=== PATIENT | female | born 1985 | race African-American/Black ===

== ENCOUNTER 2019-01-03 10:48 | Inpatient (IN) | payer OTHER ==
[2019-01-03] MEDS ORDERED: Dextrose 50% Abboject 50 ML SYRINGE SLOW IVP PRN (14:24)
[2019-01-03] MEDS ORDERED: Ondansetron ODT 4 MG TAB PO PRN (14:24)
[2019-01-03] MEDS ORDERED: Acetaminophen 325 MG TAB PO PRN (14:24)
[2019-01-03] MEDS ORDERED: Dextrose 5% in Water 1,000 ML IV PRN (14:24)
[2019-01-03] MEDS ORDERED: HumaLOG 300 UNITS/3 ML VIAL SC PRN (14:24)
[2019-01-03] MEDS ORDERED: Ondansetron PF 4 MG/2 ML Vial IVP PRN (14:29)
[2019-01-03] MEDS ORDERED: Acetaminophen 500 MG TAB PO PRN (14:29)
--- NOTE | 2019-01-03 16:29 | PDOC.FPRHP ---
- History of Present Illness Chief Complaint: Pregestational diabetes History of Present Illness: 33F with past medical history of DM2 presents for insulin titration. She found out she was on 12/31/18 by home test, confirmed again today in clinic. Her LMP was 11/29/18. She is 4.6 week currently by LMP. She states she has not been taking any of her DM2 med since finding out she was . She states her BG is generally around 150, highest 250. She specifically denies headache, vision change, vomiting, stomach pain, mental status change, new edema or elevated BP. - Allergies/Adverse Reactions Allergies Allergy/AdvReac Type Severity Reaction Status Date / Time Sulfa (Sulfonamide Allergy Verified 05/31/13 15:14 Antibiotics) - Home Medications Medication Instructions Recorded Confirmed Type metFORMIN HCl [Riomet] 1,000 mg PO BID-WM 05/31/13 01/03/19 History Exenatide Microspheres [Bydureon 2 mg SC SEEPHYS 01/03/19 01/03/19 History Pen] Insulin Detemir [Levemir] 30 units SC BID 01/03/19 01/03/19 History Linagliptin [Tradjenta] 1 tab PO DAILY 01/03/19 01/03/19 History - History PMHx: PSHx: FHx: Social: - Review of Systems General: denies: fever/chills, weight/appetite/sleep changes, night sweats, fatigue Eyes: denies: vision changes ENT: denies: nasal congestion, rhinorrhea Respiratory: denies: cough, congestion, shortness of breath Cardiovascular: denies: chest pain, palpitation, edema, paroxysmal nocturnal dyspnea, orthopnea Gastrointestinal: reports: nausea. denies: vomiting, diarrhea, constipation, abdominal pain, GI bleeding Genitourinary: denies: incontinence Skin: denies: rashes, lesions, itching Musculoskeletal: denies: pain, tenderness, stiffness, arthritis/arthralgias Neurological: denies: numbness, syncope Psychological: denies: anxiety, depression - Vital signs BP: [] HR: [] RR: [] Tmax: [] Pox: []% on [] Wt: [] - Physical Exam Constitutional: NAD, awake, alert and oriented, well developed HEENT: normocephalic and atraumatic, no scleral icterus Neck: supple, trachea midline Heart: RRR, normal S1/S2, no murmurs/rubs/gallops Lungs: CTAB, no respiratory distress, good air movement, no rales/rhonchi, no wheezing Abdomen: soft, non-tender, bowel sounds present Neurological: no focal deficit, normal sensation Skin: no rash/lesions, capillary refill <2 seconds Heme/Lymphatic: no unusual bruising or bleeding Psychiatric: normal mood and affect, good judgment and insight, intact recent and remote memory FMR H&P: Results - Labs Result Diagrams: 01/03/19 17:26 01/04/19 10:25 FMR H&P: A/P - Problem List (1) First trimester Current Visit: Yes Status: Acute Code(s): Z34.91 - ENCNTR FOR SUPRVSN OF NORMAL PREG, UNSP, FIRST TRIMESTER Assessment and Plan: Likely first trimester Plan to confirm with dating US. (2) Pregestational diabetes mellitus, modified White class C Current Visit: Yes Status: Acute Code(s): O24.319 - UNSP PRE-EXISTING DIABETES IN , UNSP TRIMESTER Assessment and Plan: Patient indicate she was dx with diabetes in 2006. Plan to restart lantus 30 U BID. Will obtain 2 hour posprandial insulin. Start mild SSI with initiation at 150 glucose Labwork to include CMP, CBC, A1c, 24 hour protein, TSH, EKG Will defer retinal eye exam for outpatient. - Plan Obs, at least 2 days FMR H&P: Upper Level - Plan Date/Time: 01/03/19 1627 I, [], have evaluated this patient and agree with findings/plan as outlined by international flight attendant resident. Pertinent changes/additions are listed here. Addendum - Attending - Attending Attestation Date/Time: 01/03/19 0680 I personally evaluated the patient and discussed the management with Dr. Fiore I agree with the History, Examination, Assessment and Plan documented above with any addition or exceptions noted below. 33 yo female at 5.0 wks by LMP here for hyperglycemia with pregestational DM and CKD3 Patient reports she has stopped all DM medications due to risk for compromise. POC glucose 194 upon arrival. Home UPT 12/31/18. LMP 11/29/18. Medications include Levemir, Tradjenta, metformin, and Bydureon Denies HTN or HLD. Not on statin or ACEI/ARB. Denies VB or cramping. Reports some nausea. VS reviewed. NAD. MMM. RRR. No murmurs. CTAB. No wheezing, crackles, rhonchi NT/ND. BS+ No c/c/e 1. High risk : IOB labs done in clinic. Reviewed. WNL. A pos. Dating scan ordered. 2. pregestational DM: Unsure white classification at this time but likely Class CF. Dx in 2006. A1c, CBC, EKG, CMP, Uric acid, 24 hour protein collection, TSH pending. Start Levemir 30 BID with Lispro 15 TID WM. Add ISS for adjustments. Goal < 95/120. Will refer to [facility] will need 1T screening, level II anatomy, and ECHO. DM education and nutrition consulted. 3. 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 CT scans in hospital record reviewed. Left upper pole lobulation and scaring noted. Will add renal ultrasound for arterial dopplers and size. 24 hour protien pending. Uric acid added. Trend Cr. 4. BMI 37: Dietary consulted. Goal wt gain 15 lbs. Max 20 lbs. 30 mins daily walking. Nutrition consulted. 2000 kcal/day. Adjust based on weight changes. 5. DANUTA: Undiagnosed. Will refer for sleep study. 6. HTN?: 130 to 140 SBP in clinic. Patient states home readings or different. Will continue to monitor closely. Needs home monitoring. 7. hx of LTCS x2: Will need repeat likely at 36 to 37 wks. 8. hx of wound complication: Will need wound vac with section. 9. hx of IUFD at 35 wks (03/31/11): [facility] referral for 1T screening. testing needed. 10. SAB at 12 wks Dispo: Admit for glucose monitoring. Rule out DKA. Trend labs and vital. Imaging ordered. Christel
[2019-01-03 17:46] LABS: #Basophils 0.1 thou/uL (0.0-0.2); #Eosinphils 0.1 thou/uL (0.0-0.7); #Lymphocytes 2.3 thou/uL (1.20-3.40); #Monocytes 0.5 thou/uL (0.11-0.59); #Neutrophils 6.2 thou/uL (1.40-6.50); %Basophils 0.6 % (0.0-1.0); %Eosinophils 0.9 % (0.0-10.0); %Lymphocytes 25.5 % (21.0-51.0); %Monocytes 5.3 % (0.0-10.0); %Neutrophils 67.8 % (42.0-75.0); Hemoglobin 9.8 g/dL (12.0-16.0); Mean Corpuscular HGB CONC 31.6 g/dL (32.0-36.0); Mean Corpuscular Hemoglobin 26.4 pg (27.0-31.0); Mean Corpuscular Volume 83.7 fL (78.0-98.0); Mean Platelet Volume 7.6 fL (7.4-10.4); Platelet Count 284 thou/uL (130-400); RBC Distribution Width 13.4 % (11.5-14.5); Red Blood Cell (RBC) Count 3.71 mill/uL (4.20-5.40); White Blood Cell (WBC) Count 9.2 thou/uL (4.8-10.8)
[2019-01-03 17:53] VITALS: BMI 37.2
[2019-01-03] MEDS: HumaLOG 300 UNITS/3 ML VIAL SC PRN (18:19)
[2019-01-03 18:23] LABS: Hemoglobin A1c 7.3 % (4.0-6.0)
[2019-01-03 18:27] LABS: ALT (SGPT) 10 U/L (8-55); AST (SGOT) 11 U/L (5-34); Albumin 3.3 g/dL (3.5-5.0); Alkaline Phosphatase 60 U/L (40-150); Anion Gap 13 mmol/L (10-20); BUN (Urea Nitrogen) 15 mg/dL (7.0-18.7); Bilirubin, Total 0.2 mg/dL (0.2-1.2); Calc. Creatinine Clearance 114 mL/min (70-130); Calcium 9.5 mg/dL (7.8-10.44); Carbon Dioxide 22 mmol/L (22-29); Chloride 106 mmol/L (98-107); Estimated GFR-MDRD 55; Glucose 158 mg/dL (70-105); Protein, Total 7.3 g/dL (6.0-8.3); Sodium 137 mmol/L (136-145)
--- NOTE | 2019-01-03 21:38 | ULT ---
PELVIC ULTRASOUND WITH FARNSWORTH SCALE, COLOR FLOW AND SPECTRAL DOPPLER IMAGING 01/03/19 HISTORY: Dating ultrasound. FINDINGS: The uterus measures 13.4 x 5.2 x 7 cm. No focal mass or endometrial fluid. The endometrium measures 2 .2 cm in thickness. No intrauterine gestational sac is seen. The right ovary measures 4.6 x 3.4 x 3.6 cm and the left ovary measures 4.9 x 2 x 2.5 cm. Flow is dem onstrated to both ovaries. There is a 2.5 cm cyst in the right ovary. There is a small amount of free fluid in the pelvis. IMPRESSION: No evidence of intrauterine gestation. Recommend correlation with serial beta HCG levels and follow- up ultrasound. POS: [facility]
[2019-01-03] MEDS: Insulin Glargine 30 UNITS in Pre-Filled Syringe 1 EACH SC SCH (23:03)
[2019-01-04] MEDS: HumaLOG 300 UNITS/3 ML VIAL SC PRN ×2 (05:38→17:01)
--- NOTE | 2019-01-04 05:56 | PDOC.FM ---
- Subjective Subjective: Patient is eating and drinking well. Reports she has been voiding more than normal. Feeling well and hungry this AM, no complaints. - Objective MAR Reviewed: Yes Vital Signs & Weight: Vital Signs (12 hours) Temp Pulse Resp BP BP Pulse Ox 01/04/19 05:22 98.1 F 92 16 130/81 98 01/04/19 00:18 98.7 F 88 18 124/66 98 01/03/19 21:52 122/76 01/03/19 20:18 98.6 F 91 18 141/88 H 100 Weight Weight 121.109 kg I&O: 01/02/19 01/03/19 01/04/19 06:59 06:59 06:59 Intake Total 960 Balance 960 Result Diagrams: 01/03/19 17:26 01/04/19 10:25 Phys Exam - Physical Examination Constitutional: NAD Respiratory: no wheezing, clear to auscultation bilateral Cardiovascular: RRR, no significant murmur Gastrointestinal: soft, non-tender, no distention, positive bowel sounds Musculoskeletal: no edema, pulses present Neurological: non-focal, moves all 4 limbs Psychiatric: normal affect, A&O x 3 Skin: normal turgor, cap refill <2 seconds Dx/Plan (1) First trimester Code(s): Z34.91 - ENCNTR FOR SUPRVSN OF NORMAL PREG, UNSP, FIRST TRIMESTER Status: Acute (2) Pregestational diabetes mellitus, modified White class C Code(s): O24.319 - UNSP PRE-EXISTING DIABETES IN , UNSP TRIMESTER Status: Acute - Plan Plan: @ 5.1 wk by LMP sIUP, first trimester -needs follow up sono for 1T dating, unable to see anything on sono here -[facility] [place]LMP 11/29/18 T2DM, White Class C -Patient indicate yesterday that she was dx with diabetes in 2006, will reconfirm year of dx -Restarted lantus 30 U BID -Continue 2 hour posprandial insulin. Start 8 u humalog premeal. -A1C - 7.3 -24 hr protein pending -TSH - wnl -EKG - NSR -defer retinal eye exam for outpatient. Addendum - Attending - Attending Attestation Date/Time: 01/04/19 1026 I personally evaluated the patient and discussed the management with Dr. Brady I agree with the History, Examination, Assessment and Plan documented above with any addition or exceptions noted below. 33 yo female at 5.0 wks by LMP here for hyperglycemia with pregestational DM and CKD3 HIRO: 09/05/19 HD#1 Doing well. No episodes of hypoglycemia. Still not at goal. Will continue to adjust insulin. No VB or cramping. VS reviewed. NAD. MMM. RRR. No murmurs. CTAB. No wheezing, crackles, rhonchi NT/ND. BS+ No c/c/e cr = 1.38 GFR = 54 A1c = 7.3% AST = 11 PLT = 284 1. High risk : IOB labs done in clinic. Reviewed. WNL. A pos. Will need repeat sono in 4 wks. Trend beta hCG. 2. pregestational DM: Unsure white classification at this time but likely Class CF. Dx in 2006. 24 hour pending. Continue Levemir 30 BID with Lispro 15 TID WM ( did not start yet). Add ISS for adjustments. Goal < 95/120. Will refer to [facility] will need 1T screening, level II anatomy, and ECHO. s/p DM education and nutrition. 3. 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 CT scans in hospital record reviewed. Left upper pole lobulation and scaring noted. Will add renal ultrasound for arterial dopplers and size. 24 hour protien pending. Uric acid added. Trend Cr. 4. BMI 37: s/p Dietary. Goal wt gain 15 lbs. Max 20 lbs. 30 mins daily walking. Nutrition consulted. 2000 kcal/day. Adjust based on weight changes. 5. DANUTA: Undiagnosed. Will refer for sleep study. 6. HTN?: In hospital normotensive to mild range 130s. 130 to 140 SBP in clinic. Patient states home readings similar to hospital readings. Will continue to monitor closely. Needs home monitoring. 7. hx of LTCS x2: Will need repeat likely at 36 to 37 wks. 8. hx of wound complication: Will need wound vac with section. 9. hx of IUFD at 35 wks (03/31/11): [facility] referral for 1T screening. testing needed. 10. SAB at 12 wks 11. Iron def anemia: Start PO iron 12. N/V of : diclegis started. Dispo: Continue close monitoring and insulin adjustments. Renal ultrasound needed. Christel
[2019-01-04] MEDS ORDERED: HumaLOG 300 UNITS/3 ML VIAL SC SCH (08:00)
[2019-01-04] MEDS ORDERED: Insulin Glargine 30 UNITS in Pre-Filled Syringe 1 EACH SC SCH (09:00)
[2019-01-04 10:58] LABS: ALT (SGPT) Less than 7 U/L (8-55); AST (SGOT) 8 U/L (5-34); Albumin 3.3 g/dL (3.5-5.0); Alkaline Phosphatase 60 U/L (40-150); Anion Gap 9 mmol/L (10-20); BUN (Urea Nitrogen) 16 mg/dL (7.0-18.7); Bilirubin, Total 0.2 mg/dL (0.2-1.2); Calc. Creatinine Clearance 112 mL/min (70-130); Calcium 9.6 mg/dL (7.8-10.44); Carbon Dioxide 27 mmol/L (22-29); Chloride 105 mmol/L (98-107); Estimated GFR-MDRD 54; Glucose 141 mg/dL (70-105); Potassium 4.4 mmol/L (3.5-5.1); Protein, Total 7.3 g/dL (6.0-8.3); Sodium 137 mmol/L (136-145)
[2019-01-04] MEDS: HumaLOG 300 UNITS/3 ML VIAL SC SCH ×2 (14:33→19:39)
[2019-01-04 20:30] LABS: Urine Total Volume 2800 mL (600-1600)
[2019-01-04 20:54] LABS: Protein - 24 Hr 2968 mg/24 hr (Less than 300); Protein, Urine 106 mg/dL (1-14)
[2019-01-04] MEDS: Insulin Glargine 30 UNITS in Pre-Filled Syringe 1 EACH SC SCH (21:55)
[2019-01-04] MEDS: Doxylamine 25 MG TAB PO SCH (21:57)
[2019-01-04] MEDS: pyridOXINE 50 MG (B6) TAB PO SCH (21:58)
--- NOTE | 2019-01-05 07:00 | PDOC.FM ---
- Subjective Subjective: Patient feels well this AM. Reports 2 hours after having blood glucose of 85, she was feeling shaky so she ate hard candy. Reports they rechecked her blood glucose and it was 115. Otherwise, eating and drinking well. Reports she is eating less here than she does at home. - Objective Vital Signs & Weight: Vital Signs (12 hours) Temp Pulse Resp BP BP Pulse Ox 01/05/19 04:10 98.5 F 91 18 114/62 98 01/05/19 00:47 98.7 F 98 18 114/60 97 01/04/19 20:26 99.1 F 88 18 130/65 130/65 99 Weight Weight 121.109 kg I&O: 01/03/19 01/04/19 01/05/19 06:59 06:59 06:59 Intake Total 960 880 Balance 960 880 Result Diagrams: 01/03/19 17:26 01/04/19 10:25 Phys Exam - Physical Examination Constitutional: NAD Neck: no nodes, supple Respiratory: no wheezing, clear to auscultation bilateral Cardiovascular: RRR, no significant murmur Gastrointestinal: soft, non-tender, no distention, positive bowel sounds Musculoskeletal: no edema, pulses present Neurological: non-focal, moves all 4 limbs Psychiatric: normal affect Skin: normal turgor, cap refill <2 seconds Dx/Plan (1) First trimester Code(s): Z34.91 - ENCNTR FOR SUPRVSN OF NORMAL PREG, UNSP, FIRST TRIMESTER Status: Acute (2) Pregestational diabetes mellitus, modified White class C Code(s): O24.319 - UNSP PRE-EXISTING DIABETES IN , UNSP TRIMESTER Status: Acute - Plan Plan: 33 yo @ 5.2 wk by LMP sIUP, first trimester -LMP 11/29/18 -needs follow up sono for 1T dating, no fetus visualized on sono here -BHCG 232 T2DM, White Class C,F -Patient indicate yesterday that she was dx with diabetes in 2006 -Restarted lantus 30 U BID,increase today -Continue 2 hour postprandial glucose, SSI. -15 u humalog pre-meal. -Uric acid elevated 8.0 -A1C - 7.3 -24 hr protein pending -TSH - wnl -EKG - NSR, no LVH -defer retinal eye exam for outpatient. Hx Unilateral Renal Agenesis -Pt reported she has had only 1 kidney since Class 3 Chronic kidney disease -GFR in 50s -Cr baseline 1.3 PCP: Malinda Addendum - Attending - Attending Attestation Date/Time: 01/05/19 1033 I personally evaluated the patient and discussed the management with Dr. Brady I agree with the History, Examination, Assessment and Plan documented above with any addition or exceptions noted below. 33 yo female at 5.0 wks by LMP here for hyperglycemia with pregestational DM and CKD3 HIRO: 09/05/19 HD#2 Doing well. [place] shaky, dizzy, and nasuated after dinner. Ate sweet and felt better. Glucose improved to 115. VS reviewed. NAD. MMM. RRR. No murmurs. CTAB. No wheezing, crackles, rhonchi NT/ND. BS+ No c/c/e cr = 1.38 GFR = 54 A1c = 7.3% AST = 11 PLT = 284 24 hour protein = 2968 mg Uric acid = 8.0 1. High risk : IOB labs done in clinic. Reviewed. WNL. A pos. Will need repeat sono in 4 wks. Trend beta hCG. 2. pregestational DM: Unsure white classification at this time but likely Class CF. Dx in 2006. 24 hour pending. Continue Levemir 30 BID with Lispro 15 TID WM ( did not start yet). Add ISS for adjustments. Goal < 95/120. Will refer to [facility] will need 1T screening, level II anatomy, and ECHO. s/p DM education and nutrition. 3. 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 CT scans in hospital record reviewed. Left upper pole lobulation and scaring noted. Will add renal ultrasound for arterial dopplers and size. Will need to continue to trend labs throughout . Will need nephro referral. 4. BMI 37: s/p Dietary. Goal wt gain 15 lbs. Max 20 lbs. 30 mins daily walking. Nutrition consulted. 2000 kcal/day. Adjust based on weight changes. 5. DANUTA: Undiagnosed. Will refer for sleep study. 6. HTN?: In hospital normotensive to mild range 130s. 130 to 140 SBP in clinic. Patient states home readings similar to hospital readings. Will continue to monitor closely. Needs home monitoring. 7. hx of LTCS x2: Will need repeat likely at 36 to 37 wks. 8. hx of wound complication: Will need wound vac with section. 9. hx of IUFD at 35 wks (03/31/11): [facility] referral for 1T screening. testing needed. 10. SAB at 12 wks 11. Iron def anemia: Start PO iron 12. N/V of : diclegis started. Dispo: Continue close monitoring and insulin adjustments. Renal ultrasound needed. Needs MFM and Nephro referral outpatient. Christel
[2019-01-05] MEDS ORDERED: Insulin Glargine 35 UNITS in Pre-Filled Syringe 1 EACH SC SCH (07:13)
[2019-01-05] MEDS ORDERED: HumaLOG 300 UNITS/3 ML VIAL SC PRN (07:19)
[2019-01-05] MEDS: Ferrous Sulfate 325 MG TAB PO SCH (08:35)
[2019-01-05] MEDS: Insulin Glargine 35 UNITS in Pre-Filled Syringe 1 EACH SC SCH (08:36)
[2019-01-05] MEDS: Prenatal Vitamin 1 TAB PO SCH (08:40)
[2019-01-05] MEDS: Polyethylene Glycol 3350 17 GM Packet PO SCH (08:40)
[2019-01-05] MEDS ORDERED: Ondansetron ODT 4 MG TAB PO PRN (09:32)
[2019-01-05] MEDS: HumaLOG 300 UNITS/3 ML VIAL SC SCH ×2 (09:56→13:16)
[2019-01-05] MEDS ORDERED: HumaLOG 300 UNITS/3 ML VIAL SC SCH (17:00)
[2019-01-05] MEDS: Doxylamine 25 MG TAB PO SCH (21:22)
[2019-01-05] MEDS: pyridOXINE 50 MG (B6) TAB PO SCH (21:22)
--- NOTE | 2019-01-06 07:06 | PDOC.FM ---
- Subjective Subjective: Patient reports she has a headache this morning, and is thirsty. Discussed her new medication regimen for when she will go home. - Objective Vital Signs & Weight: Vital Signs (12 hours) Temp Pulse Resp BP Pulse Ox 01/06/19 05:46 98.6 F 90 16 127/78 98 01/05/19 23:45 98.2 F 93 16 134/68 98 01/05/19 19:50 98.0 F 89 20 131/81 100 Weight Weight 121.109 kg I&O: 01/05/19 01/06/19 01/07/19 06:59 06:59 06:59 Intake Total 880 960 Balance 880 960 Result Diagrams: 01/03/19 17:26 01/04/19 10:25 Phys Exam - Physical Examination Constitutional: NAD Respiratory: no wheezing, clear to auscultation bilateral Cardiovascular: RRR, no significant murmur Gastrointestinal: soft, non-tender, no distention Musculoskeletal: no edema, pulses present Neurological: non-focal, moves all 4 limbs Skin: normal turgor, cap refill <2 seconds Dx/Plan (1) First trimester Code(s): Z34.91 - ENCNTR FOR SUPRVSN OF NORMAL PREG, UNSP, FIRST TRIMESTER Status: Acute (2) Pregestational diabetes mellitus, modified White class C Code(s): O24.319 - UNSP PRE-EXISTING DIABETES IN , UNSP TRIMESTER Status: Acute - Plan Plan: 33 yo @ 5.3 wk by LMP sIUP, first trimester -LMP 11/29/18, HIRO 09/05/19 -needs follow up sono for 1T dating, no fetus visualized on sono here -BHCG 232 T2DM, White Class C,F -Patient indicate yesterday that she was dx with diabetes in 2006 -Lantus 35 U QAM and 37 U QPM -Continue 2 hour postprandial glucose, SSI. -15, 12, 12 u humalog pre-meal -Uric acid elevated 8.0 -A1C - 7.3 -24 hr protein elevated- almost 3 g protein/24hrs -TSH - wnl -EKG - NSR, no LVH -defer retinal eye exam for outpatient. Hx Unilateral Renal Agenesis -Pt reported she has had only 1 kidney since Class 3 Chronic kidney disease -GFR in 50s -Cr baseline 1.3 -24 hr protein elevated to 3 g -US Renal bilat pending Dispo: plan to dc today after imaging, pending any further clinical changes PCP: Malinda Addendum - Attending - Attending Attestation Date/Time: 01/06/19 1007 I personally evaluated the patient and discussed the management with Dr. Brady. I agree with the History, Examination, Assessment and Plan documented above with any addition or exceptions noted below.
[2019-01-06 08:05] VITALS: TEMP 98.1
[2019-01-06] MEDS: Ferrous Sulfate 325 MG TAB PO SCH (09:28)
[2019-01-06] MEDS: Insulin Glargine 35 UNITS in Pre-Filled Syringe 1 EACH SC SCH (09:29)
[2019-01-06] MEDS: Polyethylene Glycol 3350 17 GM Packet PO SCH (09:37)
[2019-01-06] MEDS: Prenatal Vitamin 1 TAB PO SCH (09:37)
[2019-01-06] MEDS: HumaLOG 300 UNITS/3 ML VIAL SC SCH ×2 (10:34→12:33)
[2019-01-06 11:35] VITALS: BP 124/66
--- NOTE | 2019-01-06 12:05 | ULT ---
RENAL ULTRASOUND: HISTORY: End-stage renal disease. TECHNIQUE: Multiple longitudinal and transverse images of the kidneys and bladder is obtained using a multi hert z curvilinear transducer. Real-time, color flow and spectral waveform Doppler analysis is used to evaluate kidneys and bladder. FINDINGS: The right kidney measures 10.5 cm and left kidney 10.0 cm from [id number]. No evidence of renal par enchymal masses or lesions seen. No evidence of hydronephrosis seen. The right and left ureteral jets are visualized. Resistive index in the right kidney measures 0.62 and in the left kidney 0.61. This is compatible wit h normal resistive indices. No definite evidence of renal artery stenosis suspected on sonography. IMPRESSION: Normal renal Doppler ultrasound evaluation and images. Transcribed Date/Time: 01/06/2019 1:07 PM
--- NOTE | 2019-01-07 09:23 | DIS ---
DATE OF ADMISSION: 01/03/2019 DATE OF DISCHARGE: 01/06/2019 RESIDENT: Joyce Brady MD ADMITTING ATTENDING: Carmela Doyle MD DISCHARGE ATTENDING: Omer Velarde MD CONSULTS: None. PROCEDURES PERFORMED: 1. Pelvic ultrasound 01/03/2019, findings, no evidence of intrauterine gestation. 2. Abdomen and pelvic ultrasound, renal ultrasound on 01/06/2019, preliminary report, normal renal Doppler ultrasound evaluation with images. Right kidney measures 10.5 and left kidney 10.0 cm. No evidence of renal parenchymal masses or lesions. No evidence of hydronephrosis. Right and left ureteral jets were visualized. Resistive index in the right kidney measures 0.62 and the left kidney 0.61, and this is compatible with normal resistive indices. No definite evidence of renal artery stenosis expected on sonography. PRIMARY DIAGNOSES: 1. Type 2 diabetes mellitus white class CF. 2. Single intrauterine , first trimester. SECONDARY DIAGNOSIS: Stage 3 chronic kidney disease. DISCHARGE MEDICATIONS: 1. Iron 225 mg oral every morning with breakfast. 2. Humalog 12 units subcutaneous with 15-30 minutes prior to breakfast, 12 units 15-30 minutes prior to lunch, and 12 units 15-30 minutes prior to supper. 3. Lantus 35 units subcutaneous q.a.m., 37 units subcutaneous q.p.m. 4. MiraLAX 17 g p.o. daily for constipation. 5. vitamin 1 tablet p.o. daily. DISCONTINUED MEDICATIONS: 1. Metformin 1000 mg p.o. b.i.d. with meals. 2. Levemir 30 units subcutaneous b.i.d. 3. Exenatide 2 mg subcutaneous 2 mg once weekly. 4. Tradjenta one tablet p.o. daily. HISTORY OF PRESENT ILLNESS/HOSPITAL COURSE: A 33-year-old with past medical history of type 2 diabetes mellitus, presents for insulin titration. On 2018 she had a + home test, which was confirmed today in clinic. Her LMP was 11/29/2018. By LMP, her HIRO is 09/05/2019. The patient states she has not been taking any of her diabetic medications since finding out that she is . She states her blood glucose is generally around 150-250. She denied headache, vision changes, vomiting, stomach pain, mental status change, no edema or elevated blood pressure. The patient had serial beta HCG done. Her initial beta HCG was 232. Less than 48 hours, her beta HCG had more than doubled to 530. The patient had a sonogram done, however, is too early to visualize the fetus. Recommend outpatient followup for repeat first trimester dating ultrasound. The patient is a white class CF diabetic. She reports she was diagnosed with diabetes in 2006. The patient was started on Lantus b.i.d., as well as Humalog with meals. The patient has a goal of 2-hour postprandial glucose less than 120 and fasting AM glucose to be less than 95. On discharge, the patient was taking 35 units Lantus in the a.m. and 37 units of Lantus in the p.m. Her premeal Humalog was 15 units at breakfast, 12 with lunch, and 12 with supper. The patient had elevated uric acid at 8.0. Her A1c was 7.3. 24-hour protein was elevated to almost 3 g. TSH is within normal limits. Her EKG showed normal sinus rhythm with no left ventricular hypertrophy. Recommend out patient retinal eye exam follow up. The patient has class 3 chronic kidney disease. Her GFR is in the 50s. Creatinine baseline is 1.3. Ultrasound of her kidneys was done. It showed no renal artery stenosis. It showed no hydronephrosis. Her kidneys were symmetric with cortical lengths of 10 cm and 10.5 cm. The patient reported that she only had one kidney, however, both kidneys were clearly visualized on ultrasound. DISPOSITION: Stable. DISCHARGE INSTRUCTIONS: 1. Location: Home. 2. Diet: Diabetic diet. 3. Activity: As tolerated. 4. Followup: Follow up with Dr. Vogt at 10:40 a.m. on Sunday at [facility] for diabetic titration management outpatient. Follow up with Dr. Tabatha Bernard on Sunday at January 13 at 10:40 a.m. for initial OB visit and further care. Job ID: [id number] [facility]
--- NOTE | 2019-01-07 16:10 | ULT ---
RENAL ULTRASOUND: HISTORY: End-stage renal disease. TECHNIQUE: Multiple longitudinal and transverse images of the kidneys and bladder is obtained using a multi hert z curvilinear transducer. Real-time, color flow and spectral waveform Doppler analysis is used to evaluate kidneys and bladder. FINDINGS: The right kidney measures 10.5 cm and left kidney 10.0 cm from [id number]. No evidence of renal par enchymal masses or lesions seen. No evidence of hydronephrosis seen. The right and left ureteral jets are visualized. Resistive index in the right kidney measures 0.62 and in the left kidney 0.61. This is compatible wit h normal resistive indices. No definite evidence of renal artery stenosis suspected on sonography. IMPRESSION: Normal renal Doppler ultrasound evaluation and images. Transcribed Date/Time: 01/07/2019 4:06 PM
== END 2019-01-06 13:50 | disposition home or self-care (01) | DRG 832 ==
LOC: INTOOBSV 13:47 → OBSVTOIN 13:47 → 3SE 13:47
PROVIDERS: ADMIT Student in an Organized Health Care Education/Training Program; ATTEND Student in an Organized Health Care Education/Training Program
DX: O24.311 Unspecified pre-existing diabetes mellitus in pregnancy, first trimester (principal); Q60.0 Renal agenesis, unilateral; O26.831 Pregnancy related renal disease, first trimester; Z3A.01 Less than 8 weeks gestation of pregnancy; O99.02 Anemia complicating childbirth; N18.3 Chronic kidney disease, stage 3 (moderate); E11.22 Type 2 diabetes mellitus with diabetic chronic kidney disease; O34.211 Maternal care for low transverse scar from previous cesarean delivery; D50.9 Iron deficiency anemia, unspecified; Z88.2 Allergy status to sulfonamides; Z79.4 Long term (current) use of insulin
CPT/HCPCS: 36415; 36416; 76700; 76770; 76856; 80053; 83036; 84156; 84443; 84550; 84702; 85025; 93005; 93010; J1825; Q0162

== ENCOUNTER 2019-07-26 20:00 | Inpatient (IN) | payer OTHER ==
[2019-07-26 20:53] VITALS: BMI 42.3
[2019-07-26] MEDS ORDERED: hydrALAZINE 20 MG/ML VIAL SLOW IVP PRN (21:45)
[2019-07-26 22:00] LABS: #Eosinphils 0.1 thou/uL (0.0-0.7); #Lymphocytes 1.7 thou/uL (1.20-3.40); #Monocytes 0.6 thou/uL (0.11-0.59); #Neutrophils 5.9 thou/uL (1.40-6.50); %Basophils 0.5 % (0.0-1.0); %Eosinophils 1.5 % (0.0-10.0); %Lymphocytes 20.5 % (21.0-51.0); %Monocytes 6.7 % (0.0-10.0); %Neutrophils 70.9 % (42.0-75.0); Hemoglobin 9.9 g/dL (12.0-16.0); Mean Corpuscular HGB CONC 34.1 g/dL (32.0-36.0); Mean Corpuscular Hemoglobin 30.7 pg (27.0-31.0); Mean Platelet Volume 7.2 fL (7.4-10.4); Platelet Count 198 thou/uL (130-400); RBC Distribution Width 11.7 % (11.5-14.5); Red Blood Cell (RBC) Count 3.22 mill/uL (4.20-5.40); White Blood Cell (WBC) Count 8.3 thou/uL (4.8-10.8)
[2019-07-26 22:21] LABS: ALT (SGPT) 9 U/L (8-55); AST (SGOT) 13 U/L (5-34); Albumin 2.9 g/dL (3.5-5.0); Alkaline Phosphatase 67 U/L (40-110); Anion Gap 12 mmol/L (10-20); BUN (Urea Nitrogen) 16 mg/dL (7.0-18.7); Bilirubin, Total 0.2 mg/dL (0.2-1.2); Calc. Creatinine Clearance 128 mL/min (70-130); Calcium 8.8 mg/dL (7.8-10.44); Carbon Dioxide 22 mmol/L (22-29); Chloride 107 mmol/L (98-107); Estimated GFR-MDRD 54; Globulin 3.5 g/dL (2.4-3.5); Glucose 93 mg/dL (70-105); Potassium 4.3 mmol/L (3.5-5.1); Protein, Total 6.4 g/dL (6.0-8.3); Sodium 137 mmol/L (136-145)
[2019-07-26] MEDS ORDERED: Acetaminophen 500 MG TAB PO SCH (22:30)
--- NOTE | 2019-07-26 23:07 | PDOC.FPRHP ---
- History of Present Illness Chief Complaint: Contractions, Headache History of Present Illness: Patient is a 33 yo female at 32.5 wks EGA by 7.1 wk U/S (HIRO 09/15/2019 ) who presents with complaint of headache that started yesterday and has been increasing in severity despite 2-3 rounds of Tylenol use. Additionally patient feels like started having contractions this morning, unable to provide timing between contractions, sometimes frequent sometimes feels like hours in between. Patient also says since she woke up this morning she noticed having new blurry vision. Her feet have also been having increased swelling the past 3 days. Per [facility] records patient follows with MFM, last note from 07/24/19 shows that patient was told to take HCTZ for edema but patient refused this med. Then started on Lasix 20 mg daily but patient still has not taken. Patient has longstanding hx of T2DM, dx in 2006, currently taking Lantus 44 in AM, 40 in PM & Humalog ssi. Patient states her morning fasting sugars have been in 70s and 80s, was 76 this morning. - Allergies/Adverse Reactions Allergies Allergy/AdvReac Type Severity Reaction Status Date / Time Sulfa (Sulfonamide Allergy Severe Hives Verified 07/26/19 20:39 Antibiotics) - Home Medications Medication Instructions Recorded Confirmed Type Ferrous Sulfate [Feosol] 325 mg PO QAM-WM #30 tab 01/06/19 07/26/19 Rx HumaLOG [HumaLOG Vial] 15 units SC QAM-WM #5 vial 01/06/19 07/26/19 Rx Vitamin 1 tab PO DAILY #30 tab 01/06/19 07/26/19 Rx Furosemide [Lasix] 1 tab PO BID 07/26/19 07/26/19 History HumaLOG [HumaLOG Vial] 15 units SC BID-WM 07/26/19 07/26/19 History Insulin Glargine [Lantus Vial] 44 units SC QAM 07/26/19 07/26/19 History Insulin Glargine [Lantus] 44 units SC HS 07/26/19 07/26/19 History - History PMHx: PSHx: FHx: Social: - Vital signs BP: [] HR: [] RR: [] Tmax: [] Pox: []% on [] Wt: [] FMR H&P: Results - Labs Result Diagrams: 07/26/19 21:53 07/26/19 21:53 Lab results: WBC 8.3 thou/uL (4.8-10.8) 07/26/19 21:53 Hgb 9.9 g/dL (12.0-16.0) L 07/26/19 21:53 Hct 28.9 % (36.0-47.0) L 07/26/19 21:53 MCV 90.0 fL (78.0-98.0) 07/26/19 21:53 Plt Count 198 thou/uL (130-400) 07/26/19 21:53 Neutrophils % 70.9 % (42.0-75.0) 07/26/19 21:53 Sodium 137 mmol/L (136-145) 07/26/19 21:53 Potassium 4.3 mmol/L (3.5-5.1) 07/26/19 21:53 Chloride 107 mmol/L (98-107) 07/26/19 21:53 Carbon Dioxide 22 mmol/L (22-29) 07/26/19 21:53 BUN 16 mg/dL (7.0-18.7) 07/26/19 21:53 Creatinine 1.37 mg/dL (0.6-1.1) H 07/26/19 21:53 Glucose 93 mg/dL (70-105) 07/26/19 21:53 Calcium 8.8 mg/dL (7.8-10.44) 07/26/19 21:53 Total Bilirubin 0.2 mg/dL (0.2-1.2) 07/26/19 21:53 AST 13 U/L (5-34) 07/26/19 21:53 ALT 9 U/L (8-55) 07/26/19 21:53 Alkaline Phosphatase 67 U/L (40-110) 07/26/19 21:53 Serum Total Protein 6.4 g/dL (6.0-8.3) 07/26/19 21:53 Albumin 2.9 g/dL (3.5-5.0) L 07/26/19 21:53 FMR H&P: Upper Level - Plan Date/Time: 07/26/194 I, [], have evaluated this patient and agree with findings/plan as outlined by consumer insights intern resident. Pertinent changes/additions are listed here.
[2019-07-26 23:17] LABS: Creatinine, Urine 27.03 mg/dL (47-110)
--- NOTE | 2019-07-26 23:40 | PDOC.FPROB ---
FMR OB H&P: HPI - History of Present Illness Chief Complaint: Contractions, Headache History of Present Illness: Patient is a 33 yo female at 32.5 wks EGA by 7.1 wk U/S (HIRO 09/15/2019 ) who presents with complaint of headache that started yesterday and has been increasing in severity despite 2-3 rounds of Tylenol use. Additionally patient feels like started having contractions this morning, unable to provide timing between contractions, sometimes frequent sometimes feels like hours in between. Patient also says since she woke up this morning she noticed having new blurry vision. Her feet have also been having increased swelling the past 3 days. Per [facility] records patient follows with [facility], last note from 07/24/19 shows that patient was told to take HCTZ for edema but patient refused this med. Then started on Lasix 20 mg daily but patient still has not taken. Patient has longstanding hx of T2DM, dx in 2006, currently taking Lantus 44 in AM, 40 in PM & Humalog ssi. Patient states her morning fasting sugars have been in 70s and 80s, was 76 this morning. Primary Care Physician: Koko FMR OB H&P: Current - Care : 4 Para: 1 Gestational age: 32.5 wks Due date: 09/15/2019 Dating Criteria: 7.1 wk U/S Course/Complications: T2DM, dx in 2006. CKD stage III Obesity - OB Labs Blood type: A RH: positive Antibody Screen: negative HIV: negative RPR: negative HepBsAg: negative Rubella: immune Gonorrhea: negative Chlamydia: negative A1c: 5.3% on 07/15/19 GBS: unknown H&H: 9.9/28.9 Platelets: 198 FMR OB H&P: History - Past Medical History PMH: T2DM, chronic HTN, CKD stage III, Obesity - OB History OB History: History of stillborn at 37 weeks EGA Hx of miscarriage in 1st trimester - Surgical History Sx History: 2 prior c/s - Social History Social History: Denies tobacco use. FMR OB H&P: Medications - Current Home Medications: Medication Instructions Recorded Confirmed Type Ferrous Sulfate [Feosol] 325 mg PO QAM-WM #30 tab 01/06/19 07/26/19 Rx HumaLOG [HumaLOG Vial] 15 units SC QAM-WM #5 vial 01/06/19 07/26/19 Rx Vitamin 1 tab PO DAILY #30 tab 01/06/19 07/26/19 Rx Furosemide [Lasix] 1 tab PO BID 07/26/19 07/26/19 History HumaLOG [HumaLOG Vial] 15 units SC BID-WM 07/26/19 07/26/19 History Insulin Glargine [Lantus Vial] 44 units SC QAM 07/26/19 07/26/19 History Insulin Glargine [Lantus] 44 units SC HS 07/26/19 07/26/19 History Allergies/Adverse Reactions: Allergies Allergy/AdvReac Type Severity Reaction Status Date / Time Sulfa (Sulfonamide Allergy Severe Hives Verified 07/26/19 20:39 Antibiotics) FMR OB H&P: ROS - Review of Systems General: reports: fatigue. denies: fever/chills, weight/appetite/sleep changes Eyes: reports: vision changes ENT: denies: nasal congestion, ear pain, ringing in ears Cardiovascular: reports: edema. denies: chest pain, palpitation, orthopnea Respiratory: denies: cough, congestion, shortness of breath Gastrointestinal: reports: cramping. denies: abdominal pain, nausea, vomiting, diarrhea, constipation Genitourinary (Female): reports: contractions. denies: dysuria, vaginal discharge, vaginal bleeding, vaginal pressure Musculoskeletal: denies: pain, tenderness, decrease range of motion Neurologic: reports: headache. denies: numbness, weakness Integumentary: denies: itching, rash Endocrine: denies: polyuria Psychological: denies: episodic change in person FMR OB H&P: Vital Signs - Maternal Vital signs: Vital Signs - First Documented Temp Pulse Resp BP 98.1 F 88 20 145/96 H 07/26/19 20:37 07/26/19 20:37 07/26/19 20:37 07/26/19 20:37 - Heart Tones Baseline: 140 Variability: minimal Acceleration: present Deceleration: absent Category: category 1 [place] contractions every: none FMR OB H&P: Physical Exam - Physical Exam General: NAD, awake, alert and oriented HEENT: normocephalic and atraumatic, EOMI, MMM, conjunctiva clear, no scleral icterus, grossly normal vision, grossly normal hearing Neck: supple, FROM, no JVD Chest: non-tender to palpation Heart: RRR, normal S1/S2, no murmurs/rubs/gallops, pulses present, other (1+ nonpitting edema in bilateral LE) General: CTAB, no respiratory distress, good air movement, no rales/rhonchi, no wheezing Abdomen: soft, gravid, fundus(cm) (above umbilicus), non-tender, bowel sound present Musculoskeletal: normal gait and station, pulses present, FROM in all four extremities Neurological: sensation to pain,touch and proprioception grossly normal, no focal deficit Skin: no rash, good tugor, no jaundice Lymphatic: no unusual bruising or bleeding Psychiatric: intact recent and remote memory, normal mood and affect FMR OB H&P: Results - Labs Lab results: Laboratory Results - last 24 hr 07/26/19 07/26/19 07/26/19 21:53 21:53 22:55 WBC 8.3 RBC 3.22 L Hgb 9.9 L Hct 28.9 L MCV 90.0 MCH 30.7 MCHC 34.1 RDW 11.7 Plt Count 198 MPV 7.2 L Neutrophils % 70.9 Lymphocytes % 20.5 L Monocytes % 6.7 Eosinophils % 1.5 Basophils % 0.5 Neutrophils # 5.9 Lymphocytes # 1.7 Monocytes # 0.6 H Eosinophils # 0.1 Basophils # 0.0 Sodium 137 Potassium 4.3 Chloride 107 Carbon Dioxide 22 Anion Gap 12 BUN 16 Creatinine 1.37 H Estimated GFR (MDRD) 54 Glucose 93 Calcium 8.8 Total Bilirubin 0.2 AST 13 ALT 9 Alkaline Phosphatase 67 Serum Total Protein 6.4 Albumin 2.9 L Globulin 3.5 Albumin/Globulin Ratio 0.8 L U Random Total Protein 99 H Urine Creatinine 27.03 L FMR OB H&P: A/P - Problem List (1) Headache Current Visit: Yes Status: Acute Code(s): R51 - HEADACHE Qualifiers: Headache type: new daily persistent Qualified Code(s): G44.52 - New daily persistent headache (NDPH) (2) Pregestational diabetes mellitus, modified White class C Current Visit: No Status: Acute Code(s): O24.319 - UNSP PRE-EXISTING DIABETES IN , UNSP TRIMESTER Disposition: 33 yo female at 32.5 wks by 7.1 wk U/S (HIRO 09/15/2019) who presents with headache: #Headache, Blurry Vision -will order Pre-E labs including CBC, CMP, Urine Protein, Urine Creatinine -will review [facility] records for baseline lab values #Hx of CKD III -2/2 longstanding uncontrolled T2DM -currently sees MFM weekly, last appt on 07/24/19 patient was supposed to start on HCTZ for peripheral edema but patient refused, then started on Furosemide 20 mg although patient not taken yet #Pregestational T2DM -currently taking Lantus 44 units in AM, 40 units in PM -has Humalog ssi for meals -FBG this AM was 76 per patient, AM sugars have been running in 70s and 80s -last A1C was 5.3% on 07/15/19 Dispo: Will place on monitor. Order Pre-E workup. Will review [facility] records to see baseline labs. Hospital Course: Patient offered Tylenol for ARSHAD and refused. Then given Reglan and Benadryl. Patient's labs returned near baseline when compared to [facility] records. Headache improved. Discharge Instructions: Keep appointment with MFM next week. Encouraged to take Furosemide for LE edema. Given ER return precautions. Discharged to home @0030 on 07/27. Discussion: Date/Time: 07/26/192338 This H&P was discussed with Dr. Serna and Dr. Fry who agree with the above documentation and plan. Addendum - Attending - Attending Attestation Date/Time: 07/27/19 0035 I personally evaluated the patient and discussed the management with Dr. Jacome I agree with the History, Examination, Assessment and Plan documented above with any addition or exceptions noted below - 33 yo @32.1 weeks with pregestational DM complicated by nephropathy and h/o stillbirth at 37 weeks presented c/o ARSHAD since yesterday increasing in intensity. Also c/o intermittent ctx unable to quantify frequency. Denies any LOF, VB. (+)FM Serial BP initially 140/90s now 130/60s. Exam repeated by me and agree with resident's findings. Labs: Kas=510, H/H=9.9/28.9, Cr=1.37, U Pr/Cr=3.66. A/P: 1) IUP @ 32.1 weeks with pregestational DM complicated by nephropathy now with ARSHAD- labs at baseline ; last 24 hour urine protein = 3.887g (07/17/2019). Trial of reglan and benadryl for ARSHAD. Will re-evaluate in 1 hour from meds.
[2019-07-26] MEDS ORDERED: diphenhydrAMINE 50 MG/ML VIAL IM SCH (23:45)
[2019-07-26] MEDS ORDERED: Insulin Glargine 44 UNITS in Pre-Filled Syringe 1 EACH SC SCH (23:45)
[2019-07-26] MEDS ORDERED: Metoclopramide HCl 10 MG TAB PO SCH (23:45)
--- NOTE | 2019-07-27 01:00 | PDOC.EVN ---
Event Note - Event Note Event Note: Follow-up with patient- still complaining of ARSHAD but asleep on entering room. BP 120/65. Will place in obs and re-evaluate in AM. Intermittent monitoring, q1 BP , repeat labs in AM and will start a new 24 hour protein.
--- NOTE | 2019-07-27 01:03 | PDOC.OBTPN ---
FMR OB Triage PN:Sub - Interval History Chief Complaint: Headache FMR OB Triage PN:Obj - Maternal Vital signs: BP: 120s-130s systolic FMR OB Triage PN:Data - Labs Lab results: Laboratory Results - last 24 hr 07/26/19 07/26/19 07/26/19 21:53 21:53 21:53 WBC 8.3 RBC 3.22 L Hgb 9.9 L Hct 28.9 L MCV 90.0 MCH 30.7 MCHC 34.1 RDW 11.7 Plt Count 198 MPV 7.2 L Neutrophils % 70.9 Lymphocytes % 20.5 L Monocytes % 6.7 Eosinophils % 1.5 Basophils % 0.5 Neutrophils # 5.9 Lymphocytes # 1.7 Monocytes # 0.6 H Eosinophils # 0.1 Basophils # 0.0 Sodium 137 Potassium 4.3 Chloride 107 Carbon Dioxide 22 Anion Gap 12 BUN 16 Creatinine 1.37 H Estimated GFR (MDRD) 54 Glucose 93 Calcium 8.8 Total Bilirubin 0.2 AST 13 ALT 9 Alkaline Phosphatase 67 B-Natriuretic Peptide 31.5 Serum Total Protein 6.4 Albumin 2.9 L Globulin 3.5 Albumin/Globulin Ratio 0.8 L U Random Total Protein Urine Creatinine 07/26/19 22:55 WBC RBC Hgb Hct MCV MCH MCHC RDW Plt Count MPV Neutrophils % Lymphocytes % Monocytes % Eosinophils % Basophils % Neutrophils # Lymphocytes # Monocytes # Eosinophils # Basophils # Sodium Potassium Chloride Carbon Dioxide Anion Gap BUN Creatinine Estimated GFR (MDRD) Glucose Calcium Total Bilirubin AST ALT Alkaline Phosphatase B-Natriuretic Peptide Serum Total Protein Albumin Globulin Albumin/Globulin Ratio U Random Total Protein 99 H Urine Creatinine 27.03 L R OB Triage PN:A/P - Problem List (1) Headache Current Visit: Yes Status: Acute Code(s): R51 - HEADACHE Qualifiers: Headache type: new daily persistent Qualified Code(s): G44.52 - New daily persistent headache (NDPH) (2) Pregestational diabetes mellitus, modified White class C Current Visit: No Status: Acute Code(s): O24.319 - UNSP PRE-EXISTING DIABETES IN , UNSP TRIMESTER Disposition: Patient headache was not improving after Benadryl and Reglan. However BP continued to look better with 120s-130s systolic, 80s diastolic. Given high risk patient, will admit patient to observation. Will continue to monitor BP q 1hr. Plan to repeat CBC, CMP in the AM. Will also obtain 24 hr urine protein. Will order Accuchecks fasting and postprandial. Dispo: Stable, admitted to observation on L&D. Anticipate d/c after 24 hr urine protein collected. Discussion: Date/Time: 07/27/19 0100 This H&P was discussed with Dr. Serna and Dr. Fry who agree with the above documentation and plan.
[2019-07-27] MEDS ORDERED: Dextrose 5% in Water 1,000 ML IV PRN (02:35)
[2019-07-27] MEDS ORDERED: Dextrose 50% Abboject 50 ML SYRINGE SLOW IVP PRN (02:35)
[2019-07-27] MEDS ORDERED: Insulin Regular 300 UNITS/3 ML VIAL SC PRN (02:35)
[2019-07-27 04:53] LABS: #Eosinphils 0.1 thou/uL (0.0-0.7); #Lymphocytes 1.6 thou/uL (1.20-3.40); #Monocytes 0.7 thou/uL (0.11-0.59); #Neutrophils 5.7 thou/uL (1.40-6.50); %Basophils 0.6 % (0.0-1.0); %Eosinophils 1.3 % (0.0-10.0); %Lymphocytes 20.1 % (21.0-51.0); Mean Corpuscular HGB CONC 34.2 g/dL (32.0-36.0); Mean Corpuscular Hemoglobin 30.4 pg (27.0-31.0); Mean Corpuscular Volume 88.8 fL (78.0-98.0); Mean Platelet Volume 7.2 fL (7.4-10.4); Platelet Count 179 thou/uL (130-400); RBC Distribution Width 11.6 % (11.5-14.5); Red Blood Cell (RBC) Count 2.97 mill/uL (4.20-5.40); White Blood Cell (WBC) Count 8.1 thou/uL (4.8-10.8)
--- NOTE | 2019-07-27 04:59 | PDOC.LDPN ---
Labor & Delivery Progress Note - Subjective Subjective: other (Headache currently an 8/10 L frontal throbbing/stabbing pain) - Objective Vital signs reviewed and normal: yes General: NAD, breathing through contractions Uterine fundus: non tender - Assessment (1) Headache Code(s): R51 - HEADACHE Current Visit: Yes Status: Acute Qualifiers: Headache type: new daily persistent Qualified Code(s): G44.52 - New daily persistent headache (NDPH) (2) Pregestational diabetes mellitus, modified White class C Code(s): O24.319 - UNSP PRE-EXISTING DIABETES IN , UNSP TRIMESTER Current Visit: No Status: Acute (3) Anemia Code(s): D64.9 - ANEMIA, UNSPECIFIED Current Visit: Yes Status: Chronic Plan: continue plan of care -: 33 yo female at 32.5 wks by 7.1 wk U/S (HIRO 09/15/2019) who presents with headache: 1. Headache, Blurry Vision * Ordered Pre-E labs including CBC, CMP, Urine Protein, Urine Creatinine: wnl * Reviewed [facility] records for baseline lab values * Continue to monitor BP q 1hr. * CMP: wnl * 24 hr urine protein:pending * Reglan & Benadryl unsuccessful 2. Hx of CKD III 2/2 longstanding uncontrolled T2DM * Currently sees MFM weekly, last appt on 07/24/19 patient * Supposed to start on HCTZ for peripheral edema but patient refused, then started on Furosemide 20 mg although patient not taken yet 3. Pregestational T2DM, White's Class C Home Regimen: Lantus 44 units in AM, 40 units in PM * Humalog SSI for meals * FBG 07/26 AM was 76 per patient, AM sugars have been running in 70s and 80s * last A1C was 5.3% on 07/15/19 * Order Accuchecks fasting and postprandial. 4. Anemia Hgb: 9.9 >9.0 * Reviewed clinic labs and around her normal range * Currently on Iron & PNV with Iron Activity: As tolerated Code Status: Full Dispo: Will place on monitor. 24H protein pending. Obs LOS <48H Addendum - Attending - Attending Attestation Date/Time: 07/27/19 3357 I personally evaluated the patient and discussed the management with Dr. Marcel Terrell I agree with the History, Examination, Assessment and Plan documented above with any addition or exceptions noted below - Patient reports continued ARSHAD. Afebrile VSS. A/P: 1) IUP @ 32.6 weeks with Class F DM and CKD - BP at baseline ; repeat labs at baseline. 24 hour urine in progress. Case d/w OB hospitalist and will see patient for additional recommendations. Does not appear to be developing superimposed pre-eclampsia at this time.
[2019-07-27 05:17] LABS: ALT (SGPT) 8 U/L (8-55); AST (SGOT) 12 U/L (5-34); Albumin 2.6 g/dL (3.5-5.0); Alkaline Phosphatase 61 U/L (40-110); Anion Gap 11 mmol/L (10-20); BUN (Urea Nitrogen) 16 mg/dL (7.0-18.7); Bilirubin, Total Less than 0.2 mg/dL (0.2-1.2); Calc. Creatinine Clearance 131 mL/min (70-130); Calcium 8.7 mg/dL (7.8-10.44); Carbon Dioxide 23 mmol/L (22-29); Chloride 109 mmol/L (98-107); Estimated GFR-MDRD 55; Globulin 3.4 g/dL (2.4-3.5); Glucose 145 mg/dL (70-105); Potassium 4.3 mmol/L (3.5-5.1); Sodium 139 mmol/L (136-145)
[2019-07-27] MEDS ORDERED: HumaLOG 300 UNITS/3 ML VIAL SC SCH ×2 (08:00)
[2019-07-27] MEDS: Ferrous Sulfate 325 MG TAB PO SCH (08:58)
[2019-07-27] MEDS: Furosemide 20 MG TAB PO SCH ×2 (08:58→21:29)
[2019-07-27] MEDS: Prenatal Vitamin 1 TAB PO SCH (08:59)
[2019-07-27] MEDS: HumaLOG 300 UNITS/3 ML VIAL SC SCH ×3 (09:18→19:13)
--- NOTE | 2019-07-27 09:35 | PDOC.LDHP ---
Labor and Delivery H&P Chief complaint: other (Consult) HPI: 33yo female at 32.6wks by 7.1wk US (HIRO 09/15/2019) who initially presented due to headache. She has tried Tylenol, Reglan and Benadryl with little relief. L&D hospitalist was consulted to eval pt for need for steroids for lung maturity. Pt is a long standing DMII, dx in 2006, White Class F. Currently taking Lantus 44U AM, 40U PM & Humalog SSI. Blood glucose has been well controlled. A1c 5.3 on 07/15/19. She follows with MFM. Had an US a couple days ago which was reportedly normal. She has hx of delivery with her son and hx of demise that was delivered via C/S at 37wks. Urine protein/Cr : 3.7 which is near pts baseline. Dating criteria: first trimester ultrasound (7.4wk) Grav: 4 Para: 1 (0211) Current complications: pregestational diabetes, other (CKD stage 3 Obesity) Abnormal US findings: No Past Medical History: T2DM, chronic HTN, CKD stage III, Obesity Current medications: pre-zohreh vitamins, iron, other (Lantus and Humalog Lasix- not taking) Previous surgical history: low tranverse CS Allergies/Adverse Reactions: Allergies Allergy/AdvReac Type Severity Reaction Status Date / Time Sulfa (Sulfonamide Allergy Severe Hives Verified 07/26/19 20:39 Antibiotics) Social history: none - Physical Exam Vital signs reviewed and normal: yes (one severe range pressure SBP 180) General: NAD, resting Abdomen: other (mildly tender to palpation, no rebound or rigidity) Extremeties: pitting edema (1+) FHT: category 1 - OB Labs Blood type: A RH: positive Antibody Screen: negative HIV: negative RPR: negative HEPSAg: negative GBS: unknown Rubella: immune - Plan -: 33yo female at 32.6wks by 7.1wk US (HIRO 09/15/2019) Hx of delivery x2 with one demise at 37wks - With hx of delivery, HTN, and DM she is at an increased risk of delivery with this . Would recommend giving Betamethasone x2 doses for lung maturity. Headache - Pre-E labs at baseline from prior lab values in clinic - Continue to monitor BP - 24hr urine protein being collected - Has tried Tylenol, Benadryl and Reglan with no relief. Will give Fiorcet, could also see some benefit with steroids. Hx of CKD III - Follows with MFM weekly - Reportedly prescribed HCTZ for peripheral edema but patient refused, recently started on Furosemide 20mg White's Class F DM - On Lantus 44U in AM, 40U HS and Humalog SSI WM - A1C 5.3% on 07/15/19 - Continue to monitor BG, expect rise in BG with steroids. May need to adjust insulin in anticipation of this. Anemia - On iron Pretty Arroyo MD PGY-2 Pt seen and evaluated by Dr Shivam Castellanos - Attending - Attending Attestation Date/Time: 07/27/19 3178 I personally evaluated the patient and discussed the management with Dr. Arroyo. I agree with the History, Examination, Assessment and Plan documented above with any addition or exceptions noted below. Given patient's history of stillbirth and multiple medical problems, I feel the chances of her delivery prematurely and in an expedited fashion are high. I recommend administering Betamethasone for lung maturity now, with close monitoring of patient's blood sugars. Continue 24 hour urine to assess for worsening proteinuria as well as serial BPs. Recommend Fioricet as an alternate treatment of her headache. Please let us know if we can be of further assistance.
[2019-07-27] MEDS ORDERED: HumaLOG 300 UNITS/3 ML VIAL SC PRN (10:10)
[2019-07-27] MEDS: Insulin Glargine 44 UNITS in Pre-Filled Syringe 1 EACH SC SCH (10:22)
[2019-07-27] MEDS: Fioricet 325/50/40 mg Tablet PO SCH ×3 (10:42→17:33)
[2019-07-27] MEDS: Betamet Acet/Betamet Na Ph 30 MG/5 ML VIAL IM SCH (10:42)
[2019-07-27] MEDS ORDERED: Insulin Glargine 40 UNITS in Pre-Filled Syringe 1 EACH SC SCH (21:00)
[2019-07-28] MEDS: Fioricet 325/50/40 mg Tablet PO SCH ×3 (00:03→16:47)
[2019-07-28 01:26] LABS: Urine Total Volume 3650 mL (600-1600)
[2019-07-28 02:14] LABS: Protein - 24 Hr 14053 mg/24 hr (Less than 300); Protein, Urine 385 mg/dL (1-14)
--- NOTE | 2019-07-28 05:52 | PDOC.LDPN ---
Labor & Delivery Progress Note - Assessment (1) 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 Code(s): O24.319 - UNSP PRE-EXISTING DIABETES IN , UNSP TRIMESTER; E11.21 - TYPE 2 DIABETES MELLITUS WITH DIABETIC NEPHROPATHY Current Visit: Yes Status: Acute (2) CKD (chronic kidney disease), stage III Code(s): N18.3 - CHRONIC KIDNEY DISEASE, STAGE 3 (MODERATE) Current Visit: Yes Status: Acute (3) Proteinuria affecting in third trimester Code(s): O12.13 - GESTATIONAL PROTEINURIA, THIRD TRIMESTER Current Visit: Yes Status: Acute (4) Headache Code(s): R51 - HEADACHE Current Visit: Yes Status: Acute Qualifiers: Headache type: new daily persistent Qualified Code(s): G44.52 - New daily persistent headache (NDPH) (5) Anemia Code(s): D64.9 - ANEMIA, UNSPECIFIED Current Visit: Yes Status: Chronic
--- NOTE | 2019-07-28 07:16 | PDOC.LDPN ---
Labor & Delivery Progress Note - Subjective Subjective: other (continued ARSHAD with no change in character. No new complaints.) - Objective Vital signs reviewed and normal: yes General: NAD, resting -: 33yo female at 33wks by 7.1wk US (HIRO 09/15/2019) Hx of delivery x2 with one demise at 37wks A- With hx of delivery, HTN, and DM she is at an increased risk of delivery with this . OB has been consulted and gave 1/2 doses of betamethasone yesterday. Recommendations much appreciated P- second dose betamethasone to be given today Pre-eclampsia A- 24hr urine elevated at 14g, otherwise lkabwork is relatively unremarkable. SBPs generally 130s with some in 150s. No severe features. P- steroids per plan above -monitor BPs -will discuss inpt vs. outpt mgmt during rounds Headache A- has been refractory to treatments (Tylenol, Benadryl and Reglan, Fioricet) thus far. P- Continue to monitor BP -steroid dose per plan above White's Class F DM A- sugar control challenged by steroid dose. A1C 5.3% on 07/15/19. P- Lantus 44U in AM, 44U HS (increase from 40u) and Humalog WM (15u, 15u, 20u) and as agressive SSI, will adjust dosing as needed to compensate for steroid effect. Hx of CKD III -Follows with MFM weekly, recently started on furosemide 20mg Anemia -At baseline, continue iron
[2019-07-28] MEDS ORDERED: Insulin Regular 300 UNITS/3 ML VIAL SC PRN (08:01)
[2019-07-28] MEDS: Insulin Glargine 44 UNITS in Pre-Filled Syringe 1 EACH SC SCH (08:39)
[2019-07-28] MEDS: Ferrous Sulfate 325 MG TAB PO SCH (08:40)
[2019-07-28] MEDS: Prenatal Vitamin 1 TAB PO SCH (08:40)
[2019-07-28] MEDS: Furosemide 20 MG TAB PO SCH (08:40)
[2019-07-28] MEDS ORDERED: Aspirin 81 mg Enteric Coated Tablet PO SCH (09:00)
[2019-07-28] MEDS: HumaLOG 300 UNITS/3 ML VIAL SC SCH ×2 (10:06→16:47)
[2019-07-28] MEDS: Betamet Acet/Betamet Na Ph 30 MG/5 ML VIAL IM SCH (11:37)
--- NOTE | 2019-07-28 11:44 | ULT ---
ULTRASOUND BIOPHYSICAL PROFILE: DATE: 07/28/2019 HISTORY: 33-year-old female with preeclampsia. FINDINGS: breathin tone: 2 movement: 2 Amniotic fluid volume: 2 lie: Cephalic. Placenta: To maternal right. Maternal cervix: Obscured Amniotic fluid volume: RUBIA 18 cm. heart rate: 147 bpm. IMPRESSION: Normal biophysical profile score of 8 out of 8, excluding the nonstress test.
[2019-07-28 13:35] LABS: Anion Gap 11 mmol/L (10-20); BUN (Urea Nitrogen) 17 mg/dL (7.0-18.7); Calc. Creatinine Clearance 126 mL/min (70-130); Calcium 8.9 mg/dL (7.8-10.44); Carbon Dioxide 26 mmol/L (22-29); Chloride 106 mmol/L (98-107); Estimated GFR-MDRD 53; Glucose 98 mg/dL (70-105); Potassium 4.7 mmol/L (3.5-5.1); Sodium 138 mmol/L (136-145)
[2019-07-28] MEDS ORDERED: Bicitra 30 ML UDCUP PO SCH (14:45)
[2019-07-28] MEDS ORDERED: CEFAZOLIN 2 GM in Premix Bag 1 BAG IVPB SCH (14:45)
--- NOTE | 2019-07-28 15:40 | PDOC.APC ---
Antepartum Consult ANGÉLICA PLASENCIA is a 33 year old female at [33 0/7] gestational weeks. I was asked by Dr Fry to speak with the patient regarding anticipated course for a baby born at weeks. I spoke with the patient and father of the baby. I outlined that the timing and mode of delivery is a decision that will be made by the OB service. Once the patient is taken for delivery, the resuscitation team will be present. The initial focus will be on respiratory stabilization and may include minimal assistance, CPAP or intubation with surfactant administration. I discussed that the patient will need to be admitted to the NICU in an isolette due to temperature instability associated with prematurity. We will then obtain IV access (peripheral will be first line, umbilical if unable to obtain peripheral) as babies are at risk for hypoglycemia. We discussed that babies born are at higher risk for feeding intolerance, infection and jaundice. I discussed that breastmilk is the best nutrition for babies and she is strongly encouraged to pump after delivery. Mother does plan to breastfeed. I explained that the duration of hospital stay will be determined on the clinical course of the baby. I outlined the milestones that needed to be achieved to ensure safe discharge home. They had the opportunity to ask questions. I encouraged them to contact our service again if additional questions arise. I spent 20 minutes in consultation including face to face education and coordination of care.
--- NOTE | 2019-07-28 16:21 | PDOC.EVN ---
Event Note - Event Note Event Note: 24 hour urine returned with 14g protein. Case discussed with MFM who recommended proceeding with delivery due to the developing superimposed severe pre-eclampsia onto her chronic HTN as manifested by the rapid increase in protein and her persistent ARSHAD. Discussed with anesthesia, neonatology as well as patietn and family and will plan to proceed with this afternoon.
[2019-07-28] MEDS ORDERED: MORPHINE 5 MG/10 ML PF VIAL ONE (16:37)
[2019-07-28] MEDS ORDERED: Oxytocin 10 UNITS/ML VIAL ONE ×2 (16:37→18:16)
[2019-07-28] MEDS ORDERED: PHENYLEPHRINE-NS 100 MCG/ML 10 ML SYRINGE ONE (16:37)
[2019-07-28] MEDS ORDERED: Calcium Gluconate 4.6 MEQ in Sodium Chloride 0.9% 100 ML IVPB PRN (17:03)
[2019-07-28] MEDS ORDERED: Magnesium Sulfate 20 GM/WATER 500 ML BAG IVPB SCH (17:15)
[2019-07-28] MEDS ORDERED: diphenhydrAMINE 50 MG/ML VIAL IVP PRN (17:46)
[2019-07-28] MEDS ORDERED: Ondansetron HCl/PF 4 MG/2 ML Vial IVP PRN (17:46)
[2019-07-28] MEDS ORDERED: Promethazine HCl 25 MG SUPP PR PRN (17:46)
[2019-07-28] MEDS ORDERED: Meperidine HCl/PF 25 MG/ML VIAL SLOW IVP PRN (17:46)
[2019-07-28] MEDS ORDERED: HYDROmorphone 2 MG/ML VIAL SLOW IVP PRN (17:46)
[2019-07-28] MEDS ORDERED: Ondansetron PF 4 MG/2 ML Vial IVP PRN (17:46)
[2019-07-28] MEDS ORDERED: Naloxone HCl 0.4 mg/ml Vial IVP PRN ×2 (17:46)
[2019-07-28] MEDS ORDERED: Naloxone HCl 0.4 mg/ml Vial IV PRN (17:46)
[2019-07-28] MEDS ORDERED: L&D-Morphine 4 MG/ML VIAL SLOW IVP PRN (17:46)
[2019-07-28] MEDS ORDERED: Ketorolac Tromethamine 30 MG/ML VIAL IVP PRN (17:46)
[2019-07-28] MEDS ORDERED: Promethazine HCl 25 MG/ML VIAL IM PRN (17:46)
[2019-07-28] MEDS ORDERED: Communication Order-Pharmacy FS SCH (18:00)
[2019-07-28] MEDS ORDERED: Ketorolac Tromethamine 30 MG/ML VIAL IVP SCH (18:00)
[2019-07-28] MEDS ORDERED: Fentanyl 100 MCG/2 ML VIAL ONE ×2 (18:04→18:50)
[2019-07-28 18:16] LABS: Actual Bicarbonate (HCO3v) 24 mEq/L (22-28); Base Excess -1.9 mEq/L (-2.0 to +3.0); pH (Cord, venous) 7.34 (7.32-7.43)
[2019-07-28 18:19] LABS: Actual Bicarbonate (HCO3a) 24.8 mEq/L (22-28); Base Excess (BEa) -4.4 mEq/L (-2.0 to +3.0)
[2019-07-28] MEDS ORDERED: hydrALAZINE 20 MG/ML VIAL SLOW IVP PRN (19:11)
--- NOTE | 2019-07-28 19:19 | PDOC.OPDEL ---
OB Operative/Delivery Note Delivery Dr/Surgeon: Alvarado; Consultation: Ander; Ellison: Ang Assist: Jose Carlos Bernard Pre-Delivery Diagnosis: other (1. 33w0d IUP 2. Preeclampsia with severe features superimposed on chronic hypertension 3. Class C/F DM, uncontrolled 4. CKD stage 3 5. Morbid obesity 6. Previous section x 2) Procedure/Post Delivery Dx: other (1. Repeat LTCS 2. hemorrhage 3-8. Same) Anesthesia: spinal - Additional Findings/Plan Placenta delivered: manual removal findings: other (Dense anterior and lateral adhesions) Estimated blood loss: 1650 Compilations/Other Findings: None at the time of surgery. Post delivery plan: recovery in LICU
[2019-07-28] MEDS ORDERED: Labetalol HCl 100 MG/20 ML VIAL SLOW IVP PRN (19:36)
[2019-07-28] MEDS ORDERED: Meperidine HCl/PF 25 MG/ML VIAL ONE (19:46)
[2019-07-28] MEDS ORDERED: Labetalol HCl 100 MG/20 ML VIAL ONE (19:51)
[2019-07-28] MEDS: Magnesium Sulfate 20 gm/500 ml 20 GM/500 ML BAG IVPB SCH (20:25)
[2019-07-28 20:26] LABS: Hemoglobin 9.1 g/dL (12.0-16.0); Mean Corpuscular HGB CONC 33.8 g/dL (32.0-36.0); Mean Corpuscular Hemoglobin 30.3 pg (27.0-31.0); Mean Corpuscular Volume 89.5 fL (78.0-98.0); Mean Platelet Volume 7.7 fL (7.4-10.4); Platelet Count 199 thou/uL (130-400); RBC Distribution Width 11.7 % (11.5-14.5); Red Blood Cell (RBC) Count 3.02 mill/uL (4.20-5.40)
[2019-07-28 20:37] LABS: FSP-Qualitative ABNORMAL (Normal); FSP-Semiquantitative >=5 & <20 mcg/mL (Less than 5); Fibrinogen 653 mg/dL (253-463); Platelet Count 199 thou/uL (130-400)
[2019-07-28 20:38] LABS: PTT 30.1 SEC (22.9-36.1)
[2019-07-28 20:41] LABS: D-Dimer Test 3.77 *mcg/mL (0.27-0.43)
[2019-07-28] MEDS ORDERED: Insulin Glargine 44 UNITS in Pre-Filled Syringe 1 EACH SC SCH (21:00)
[2019-07-28 21:06] LABS: Syphilis Antibody Nonreactive (Nonreactive); Syphilis Antibody Index 0.05 S/CO (<1.00 Non-Reactive)
[2019-07-28] MEDS: Docusate Calcium (SURFAK) 240 MG CAP PO SCH (21:16)
[2019-07-28] MEDS ORDERED: Morphine 4 MG/ML VIAL ONE (22:59)
[2019-07-28] MEDS: Morphine 4 MG/ML VIAL SLOW IVP PRN (23:05)
--- NOTE | 2019-07-28 23:31 | OP ---
DATE OF PROCEDURE: 07/28/2019 PREOPERATIVE DIAGNOSES: Severe preeclampsia, class F diabetes, 33 weeks gestation with nephrotic range proteinuria. POSTOPERATIVE DIAGNOSES: Severe preeclampsia, class F diabetes, 33 weeks gestation with nephrotic range proteinuria, dense adhesions of the uterus to anterior abdominal wall. PROCEDURE PERFORMED: Repeat low transverse section without extension with extensive suture repair and hemostatic control afterwards. MEDICAL OFFICE TECHNICIAN: Multiple Family Medicine residents and attendings. ANESTHESIA: Subarachnoid block. QUANTITATIVE BLOOD LOSS: Pending at the end of the case. MEDICATIONS: 2 g of Ancef preincision. DVT PROPHYLAXIS: SCDs. DESCRIPTION OF PROCEDURE: After procedure was consulted intraoperatively by Dr. Childers, Family Medicine attending, the patient had a history of a previous with dense adhesions to the anterior abdominal wall. I was called in with dense adhesions were encountered upon entry into the abdominal cavity. Upon my scrubbing in the patient's anterior aspect of a previous Pfannenstiel incision, had been dissected free of the rectus and anterior uterus with significant bleeding and oozing noted from the myometrium at this area inferiorly. Adhesions were even denser and the uterus was not able to really be from the edge of the fascia over the rectus. By report, the was cephalic presentation, so a decision was made to make a low-transverse incision while higher than normal on the uterus would not reach the active aspect of the uterus. This was performed and the uterine cavity entered bluntly taking care to avoid trauma to the fetus. Upon entry and extension of the incision back up , initially the infant's left foot and left arm protruded from the incision. The left arm was placed back into the incision and the right foot grasped delivering the in a footling breech presentation with usual rotation, maintaining flexion, and delivering the on the abdomen. The cord was cut and clamped and handed off to the team in attendance. Cord blood gas and sample was obtained. The placenta was removed manually by Dr. Childers. After removal of the uterus, inspection of the hysterotomy was carried out. It was closed using a running locking #1 Monocryl suture x2 layers. Reasonable hemostasis along the hysterotomy was noted; however, the denuded areas from the dense adhesions of the rectus and the fascia to the uterus was noted anteriorly as well as some areas of tearing on the uterus above the level of the hysterotomy on the right. Serially, these were controlled using [id number] of #1 chromic as well as Surgicel x4, 5 mL unit doses with pressure held for 3 to 4 minutes after application each time. Once this was completed, good hemostasis was noted and the fascia was reapproximated using a running continuous 0 PDS suture x1. Subcutaneous tissue was irrigated, rendered hemostatic with Bovie cautery and the rest of the case completed by the Family Medicine residents, please see their dictation. Job ID: [id number]
[2019-07-28 23:54] LABS: HBSAg Index 0.09 S/CO (0-0.99); Hep B Surf Ag Non-Reactive S/CO (NonReactive)
--- NOTE | 2019-07-29 00:34 | PDOC.BPN ---
- Brief Progress Note Magnesium Check @ 2300 07/28/19: Patient reports that she is feeling well. Denies any headache, SOB, vision changes, n/v, abdominal pain. States she just changed her pad and had scant amount of blood on it. Vital signs: 2 severe range pressures >160/90 in past 4 hours. Most recent BP 165/85, repeat in room 131/82. HR 86, Temp 97.8, O2 sat 100% on RA. Urine output: 800 mL in past 4 hours General: alert & oriented x 4 Heart: RRR, no murmur Lungs: CTA bilaterally Abdomen: soft, TTP over C/S incision. Wound vac placed on lower abdomen with surrounding area clean & dry. No signs of leakage through pad. Extremities: DTRs 2+ in patella & achilles. No clonus. No edema. Labs: Mg level 1.5 A/P: 33 yo female s/p delivery at 33.2 wks EGA via rLTCS on 07/28/19 at 1758. On MgSO4 for Pre-Eclampsia. -No signs/sx of Mag toxicity at this time -Continue checks every 4 hours, next check @ 0300 on 07/29/19. -Continue MgSO4 for 24 hours total -Monitor vitals q1hr -Has Labetalol 10 mg ordered q4hr for BP management -Check Mg levels q6hr
[2019-07-29] MEDS: Morphine 4 MG/ML VIAL SLOW IVP PRN (01:36)
--- NOTE | 2019-07-29 03:16 | OP ---
DATE OF PROCEDURE: 07/28/2019 PREOPERATIVE DIAGNOSES: 1. Viable 33-week 0-day intrauterine . 2. Preeclampsia with severe features of superimposed on chronic hypertension. 3. Class C and F diabetes mellitus, uncontrolled. 4. Chronic kidney disease, stage 3. 5. Morbid obesity. 6. Previous section x2. POSTOPERATIVE DIAGNOSES: 1. 33-week 0-day intrauterine , delivered. 2. Repeat low transverse section. 3. hemorrhage. 4. Preeclampsia with severe features of superimposed on chronic hypertension. 5. Class C and F diabetes mellitus, uncontrolled. 6. Chronic kidney disease, stage 3. 7. Morbid obesity. 8. Previous section x2. PROCEDURE PERFORMED: Repeat low transverse section and lysis of adhesions. SURGEON: Maurice Childers MD LOPEZ: Rajni Fry MD RAILROAD CAR INSPECTOR: Spike Worthington MD PRODUCT SAFETY EXPERT: Tabatha Bernard MD and Christel Branch, DO FLUIDS: 2 L. URINE OUTPUT: 800, clear. ESTIMATED BLOOD LOSS: 1650. SPECIMEN: Placenta. COMPLICATIONS: None at time of surgery. FINDINGS: Viable female in transverse back up position, dense anterior and lateral adhesions. INDICATION AND CONSENT: This is a 33-year-old G4, P0-2-1-1 female at 33 weeks 0 days by 7.1-week ultrasound, who initially presented with a headache. She also was found to have worsening blood pressures and a severe markedly increase in her proteinuria, that was 14 g on a 24-hour urine protein. [facility] was consulted and they recommended delivery. She was supposed to be on 2 doses of steroids, but was not able to make it from the full 48 hours upon recommendation from MFM. I discussed with the patient at beside risk of a repeat including pain, bleeding, infection, damage to bowel, bladder and other internal organs, need for repeat operation, prolonged hospitalization, hysterectomy and , and she voiced understanding, consented, and desired to proceed. DESCRIPTION OF PROCEDURE: The patient was taken back to the operating room, where she was prepped and draped in usual sterile fashion. After general anesthesia was obtained and Munoz catheter was placed, a scalpel was used to incise through a previous scar and this was carried down to the fascial layer, which was incised and extended with a combination of short and blunt dissection. Superior rectus fascia was dissected off the underlying rectus again with a blunt and sharp dissection , and this was repeated on the inferior fascia. At this point, dense adhesions were encountered, that include marked adhesions on the lateral sides of the uterus as well as down to the lower segment of the uterus. Slight oozing noted as the uterus itself had been adhered to the fascia. At this point, Dr. Worthington was asked to scrub in. For the hysterotomy, delivery, hemostasis, and closure of fascia please see his operative report. The subcutaneous tissue was closed with plain gut. Skin was closed with suze and a FAHAD wound VAC was placed on top. Counts were correct x2 at the end of the procedure, and the patient was taken to the PACU in stable condition. Job ID: [id number] MTDD
--- NOTE | 2019-07-29 03:32 | PDOC.BPN ---
- Brief Progress Note Magnesium Check @ 0300 07/29/19: Patient reports that she is feeling well. Denies any headache, SOB, vision changes, n/v, abdominal pain. States no vaginal bleeding since last check. Vital signs: No severe range pressures >160/90 in past 4 hours. Most recent BP 140/80. HR 104, O2 sat 100% on RA. Urine output: 400 mL in past 4 hours General: alert & oriented x 4 Heart: RRR, no murmur Lungs: CTA bilaterally Abdomen: soft, TTP over C/S incision. Wound vac placed on lower abdomen with surrounding area clean & dry. No signs of leakage through pad. Extremities: DTRs 2+ in patella & achilles. No clonus. No edema. Labs: Mg level 3.5 A/P: 33 yo female s/p delivery at 33.2 wks EGA via rLTCS on 07/28/19 at 1758. On MgSO4 for Pre-Eclampsia. -No signs/sx of Mag toxicity at this time -Continue checks every 4 hours, next check @ 0700 on 07/29/19. -Continue MgSO4 for 24 hours total -Monitor vitals q1hr -Has Labetalol 10 mg ordered q4hr for BP management -Check Mg levels q6hr
[2019-07-29 05:39] LABS: #Lymphocytes 1.8 thou/uL (1.20-3.40); #Monocytes 1.3 thou/uL (0.11-0.59); #Neutrophils 15.8 thou/uL (1.40-6.50); %Basophils 0.1 % (0.0-1.0); %Eosinophils 0.2 % (0.0-10.0); %Lymphocytes 9.7 % (21.0-51.0); %Monocytes 6.7 % (0.0-10.0); %Neutrophils 83.3 % (42.0-75.0); Hemoglobin 9.3 g/dL (12.0-16.0); Mean Corpuscular HGB CONC 33.1 g/dL (32.0-36.0); Mean Corpuscular Hemoglobin 29.8 pg (27.0-31.0); Mean Corpuscular Volume 90.1 fL (78.0-98.0); Mean Platelet Volume 7.7 fL (7.4-10.4); Platelet Count 238 thou/uL (130-400); RBC Distribution Width 11.9 % (11.5-14.5)
[2019-07-29 05:51] LABS: ALT (SGPT) 10 U/L (8-55); AST (SGOT) 19 U/L (5-34); Albumin 2.7 g/dL (3.5-5.0); Alkaline Phosphatase 61 U/L (40-110); Anion Gap 13 mmol/L (10-20); BUN (Urea Nitrogen) 16 mg/dL (7.0-18.7); Bilirubin, Total 0.2 mg/dL (0.2-1.2); Calc. Creatinine Clearance 133 mL/min (70-130); Calcium 8.6 mg/dL (7.8-10.44); Carbon Dioxide 22 mmol/L (22-29); Chloride 104 mmol/L (98-107); Estimated GFR-MDRD 56; Globulin 3.7 g/dL (2.4-3.5); Glucose 113 mg/dL (70-105); Potassium 4.9 mmol/L (3.5-5.1); Protein, Total 6.4 g/dL (6.0-8.3); Sodium 134 mmol/L (136-145)
[2019-07-29] MEDS ORDERED: HYDROcodone/Acetaminophen 5/325 mg Tablet PO PRN (06:00)
[2019-07-29] MEDS ORDERED: Morphine 4 MG/ML VIAL ONE (07:44)
--- NOTE | 2019-07-29 07:46 | PDOC.OBMPN ---
R OB LDICU PN: Subj - Interval History Hospital Day: 4 (POD#1) Indentification: 33 y/o ->0312 who delivered via rLTCS on 07/28 @ 33.0 WGA Interval History: Abd pain controlled, minimal lochia, H/A improved, no vision changes or SOB [facility] OB LDICU PN: Obj - Maternal Vital signs: BP: 114/64 HR: 90 RR: 16 - Urine output I&O: 07/28/19 07/29/19 07/30/19 06:59 06:59 06:59 Output Total 1860 Balance -1860 [facility] OB LDICU PN: Exam - Physical Exam General: NAD, awake, alert and oriented HEENT: MMM, conjunctiva clear, grossly normal vision, grossly normal hearing Neck: supple, no LAD Heart: RRR, normal S1/S2, no murmurs/rubs/gallops, pulses present, no edema General: CTAB, no respiratory distress, good air movement, no rales/rhonchi, no wheezing Abdomen: soft, fundus(cm) (firm) Musculoskeletal: pulses present Neurological: no clonus, no focal deficit Skin: good tugor, capillary refill <2 seconds : bandage intact (wound vac with good seal), no edema, no drainage, appropriately tender Psychiatric: intact recent and remote memory, good judgement and insight [facility] OB LDICU PN: Data - Labs Lab results: Laboratory Results - last 24 hr 07/28/19 07/28/19 07/28/19 10:07 12:40 13:08 WBC RBC Hgb Hct MCV MCH MCHC RDW Plt Count MPV Neutrophils % Lymphocytes % Monocytes % Eosinophils % Basophils % Neutrophils # Lymphocytes # Monocytes # Eosinophils # Basophils # PT INR APTT Fibrinogen Fibrin Degrad Products Fibrin Degrad Prod, Qt D-Dimer Bicarbonate Actual ABG Base Excess VBG HCO3 VBG Base Excess Cord ABG pH Cord ABG PCO2 (Shamir) Cord VBG pH Cord VBG pCO2 Sodium 138 Potassium 4.7 Chloride 106 Carbon Dioxide 26 Anion Gap 11 BUN 17 Creatinine 1.39 H Estimated GFR (MDRD) 53 Glucose 98 POC Glucose 130 H 113 H Calcium 8.9 Magnesium Total Bilirubin AST ALT Alkaline Phosphatase Serum Total Protein Albumin Globulin Albumin/Globulin Ratio Syphilis IgG/IgM Ab Hep Bs Antigen Blood Type Antibody Screen Crossmatch Crossmatch Prewarmed 07/28/19 07/28/19 07/28/19 15:22 15:24 17:58 WBC RBC Hgb Hct MCV MCH MCHC RDW Plt Count MPV Neutrophils % Lymphocytes % Monocytes % Eosinophils % Basophils % Neutrophils # Lymphocytes # Monocytes # Eosinophils # Basophils # PT INR APTT Fibrinogen Fibrin Degrad Products Fibrin Degrad Prod, Qt D-Dimer Bicarbonate Actual 24.8 ABG Base Excess -4.4 L VBG HCO3 VBG Base Excess Cord ABG pH 7.205 L Cord ABG PCO2 (Shamir) 64.1 H* Cord VBG pH Cord VBG pCO2 Sodium Potassium Chloride Carbon Dioxide Anion Gap BUN Creatinine Estimated GFR (MDRD) Glucose POC Glucose 123 H Calcium Magnesium Total Bilirubin AST ALT Alkaline Phosphatase Serum Total Protein Albumin Globulin Albumin/Globulin Ratio Syphilis IgG/IgM Ab Hep Bs Antigen Blood Type A POSITIVE Antibody Screen NEGATIVE Crossmatch See Detail Crossmatch Prewarmed See Detail 07/28/19 07/28/19 07/28/19 17:58 20:13 20:13 WBC 8.0 RBC 3.02 L Hgb 9.1 L Hct 27.0 L MCV 89.5 MCH 30.3 MCHC 33.8 RDW 11.7 Plt Count 199 MPV 7.7 Neutrophils % Lymphocytes % Monocytes % Eosinophils % Basophils % Neutrophils # Lymphocytes # Monocytes # Eosinophils # Basophils # PT INR APTT Fibrinogen Fibrin Degrad Products Fibrin Degrad Prod, Qt D-Dimer Bicarbonate Actual ABG Base Excess VBG HCO3 24 VBG Base Excess -1.9 Cord ABG pH Cord ABG PCO2 (Shamir) Cord VBG pH 7.34 Cord VBG pCO2 46.6 Sodium Potassium Chloride Carbon Dioxide Anion Gap BUN Creatinine Estimated GFR (MDRD) Glucose POC Glucose Calcium Magnesium Total Bilirubin AST ALT Alkaline Phosphatase Serum Total Protein Albumin Globulin Albumin/Globulin Ratio Syphilis IgG/IgM Ab Hep Bs Antigen Non-Reactive Blood Type Antibody Screen Crossmatch Crossmatch Prewarmed 07/28/19 07/28/19 07/28/19 20:13 20:13 20:13 WBC RBC Hgb Hct MCV MCH MCHC RDW Plt Count 199 MPV Neutrophils % Lymphocytes % Monocytes % Eosinophils % Basophils % Neutrophils # Lymphocytes # Monocytes # Eosinophils # Basophils # PT 13.0 INR 1.0 APTT 30.1 Fibrinogen 653 H Fibrin Degrad Products ABNORMAL H Fibrin Degrad Prod, Qt >=5 & <20 H D-Dimer 3.77 H Bicarbonate Actual ABG Base Excess VBG HCO3 VBG Base Excess Cord ABG pH Cord ABG PCO2 (Shamir) Cord VBG pH Cord VBG pCO2 Sodium Potassium Chloride Carbon Dioxide Anion Gap BUN Creatinine Estimated GFR (MDRD) Glucose POC Glucose Calcium Magnesium 1.5 L Total Bilirubin AST ALT Alkaline Phosphatase Serum Total Protein Albumin Globulin Albumin/Globulin Ratio Syphilis IgG/IgM Ab Nonreactive Hep Bs Antigen Blood Type Antibody Screen Crossmatch Crossmatch Prewarmed 07/28/19 07/28/19 07/29/19 20:40 23:26 01:26 WBC RBC Hgb Hct MCV MCH MCHC RDW Plt Count MPV Neutrophils % Lymphocytes % Monocytes % Eosinophils % Basophils % Neutrophils # Lymphocytes # Monocytes # Eosinophils # Basophils # PT INR APTT Fibrinogen Fibrin Degrad Products Fibrin Degrad Prod, Qt D-Dimer Bicarbonate Actual ABG Base Excess VBG HCO3 VBG Base Excess Cord ABG pH Cord ABG PCO2 (Shamir) Cord VBG pH Cord VBG pCO2 Sodium Potassium Chloride Carbon Dioxide Anion Gap BUN Creatinine Estimated GFR (MDRD) Glucose POC Glucose 141 H 119 H Calcium Magnesium 3.5 H Total Bilirubin AST ALT Alkaline Phosphatase Serum Total Protein Albumin Globulin Albumin/Globulin Ratio Syphilis IgG/IgM Ab Hep Bs Antigen Blood Type Antibody Screen Crossmatch Crossmatch Prewarmed 07/29/19 07/29/19 07/29/19 05:25 05:25 05:25 WBC 19.0 H RBC 3.10 L Hgb 9.3 L Hct 27.9 L MCV 90.1 MCH 29.8 MCHC 33.1 RDW 11.9 Plt Count 238 MPV 7.7 Neutrophils % 83.3 H Lymphocytes % 9.7 L Monocytes % 6.7 Eosinophils % 0.2 Basophils % 0.1 Neutrophils # 15.8 H Lymphocytes # 1.8 Monocytes # 1.3 H Eosinophils # 0.0 Basophils # 0.0 PT INR APTT Fibrinogen Fibrin Degrad Products Fibrin Degrad Prod, Qt D-Dimer Bicarbonate Actual ABG Base Excess VBG HCO3 VBG Base Excess Cord ABG pH Cord ABG PCO2 (Shamir) Cord VBG pH Cord VBG pCO2 Sodium 134 L Potassium 4.9 Chloride 104 Carbon Dioxide 22 Anion Gap 13 BUN 16 Creatinine 1.32 H Estimated GFR (MDRD) 56 Glucose 113 H POC Glucose Calcium 8.6 Magnesium 4.3 H Total Bilirubin 0.2 AST 19 ALT 10 Alkaline Phosphatase 61 Serum Total Protein 6.4 Albumin 2.7 L Globulin 3.7 H Albumin/Globulin Ratio 0.7 L Syphilis IgG/IgM Ab Hep Bs Antigen Blood Type Antibody Screen Crossmatch Crossmatch Prewarmed 07/29/19 06:17 WBC RBC Hgb Hct MCV MCH MCHC RDW Plt Count MPV Neutrophils % Lymphocytes % Monocytes % Eosinophils % Basophils % Neutrophils # Lymphocytes # Monocytes # Eosinophils # Basophils # PT INR APTT Fibrinogen Fibrin Degrad Products Fibrin Degrad Prod, Qt D-Dimer Bicarbonate Actual ABG Base Excess VBG HCO3 VBG Base Excess Cord ABG pH Cord ABG PCO2 (Shamir) Cord VBG pH Cord VBG pCO2 Sodium Potassium Chloride Carbon Dioxide Anion Gap BUN Creatinine Estimated GFR (MDRD) Glucose POC Glucose 118 H Calcium Magnesium Total Bilirubin AST ALT Alkaline Phosphatase Serum Total Protein Albumin Globulin Albumin/Globulin Ratio Syphilis IgG/IgM Ab Hep Bs Antigen Blood Type Antibody Screen Crossmatch Crossmatch Prewarmed [facility] OB LDICU PN:A/P - Problem List (1) delivery Current Visit: Yes Status: Acute Code(s): O60.10X0 - LABOR W DELIVERY, UNSP TRIMESTER, UNSP Assessment and Plan: Pt s/p delivery for maternal indication - superimposed severe pre-e on chronic HTN -PNV -Kimper prn pain -Encourage breast feeding -Will need to further discuss contraception as pt at very high risk of morbidity and mortality for any future pregnancies (2) S/P section Current Visit: Yes Status: Acute Code(s): Z98.891 - HISTORY OF UTERINE SCAR FROM PREVIOUS SURGERY Assessment and Plan: Pt POD#1 -Kimper prn pain -Sherlyn wound vac in place, continue to monitor output (3) Pre-eclampsia superimposed on chronic hypertension, delivered Current Visit: Yes Status: Acute Code(s): O11.4 - PRE-EXISTING HTN WITH PRE- ECLAMPSIA, COMP CHILDBIRTH; O10.92 - UNSP PRE-EXISTING HYPERTENSION COMPLICATING CHILDBIRTH Assessment and Plan: Pt on magnesium for 24 hours post-op -Continue mag at 1/hr -Mag levels q6h -Mag checks q4h -LR @ 100 -Monitor BP's closely, labetalol 20mg PRN ordered. Pt has required this once last night. BP's have been mostly 130s-150s/70s-80s, but she has had 5 severe range BP's since delivery. -Monitor UOP closely, it has been 100-200mL/hr with average of 137.5mL/hr since delivery. (4) CKD (chronic kidney disease), stage III Current Visit: Yes Status: Acute Code(s): N18.3 - CHRONIC KIDNEY DISEASE, STAGE 3 (MODERATE) Assessment and Plan: Consulted nephrology, appreciate recs -Avoid nephrotoxic agents, including all NSAIDS (5) 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 Current Visit: Yes Status: Acute Code(s): O24.319 - UNSP PRE-EXISTING DIABETES IN , UNSP TRIMESTER; E11.21 - TYPE 2 DIABETES MELLITUS WITH DIABETIC NEPHROPATHY Assessment and Plan: Decreased lantus to 22U BID for once pt is eating, currently on clears -SSI -Glucose checks q4h until off mag, then will change to ACHS once eating cc diet (6) Proteinuria affecting in third trimester Current Visit: Yes Status: Acute Code(s): O12.13 - GESTATIONAL PROTEINURIA, THIRD TRIMESTER Assessment and Plan: Pt proteinuria trended up from 2g->3.8g->14g in 24 hour urine sample -She has associated lower extremity and abdominal edema -Consulted nephrology, appreciate recs -Lovenox for VTE ppx as higher risk of clotting with significant proteinuria (7) Anemia Current Visit: Yes Status: Chronic Code(s): D64.9 - ANEMIA, UNSPECIFIED Assessment and Plan: Hb stable, continue iron (8) Obesity Current Visit: Yes Status: Acute Code(s): E66.9 - OBESITY, UNSPECIFIED Disposition: Continue to monitor in LDICU for 24 h on magnesium Discussion: Date/Time: 07/29/19 [id number] This H&P was discussed with Dr. Fry who agrees with the above documentation and plan. Signature: Tabatha Bernard MD, PGY-3 Addendum - Attending - Attending Attestation Date/Time: 07/29/19 1122 I personally evaluated the patient and discussed the management with Dr. Bernard I agree with the History, Examination, Assessment and Plan documented above with any addition or exceptions noted below - .
[2019-07-29] MEDS ORDERED: Morphine 4 MG/ML VIAL IV PRN (07:47)
[2019-07-29] MEDS ORDERED: FLU VACC QS2019-20(6MOS UP)/PF 60 MCG/0.5 ML SYRINGE IM ONE (08:30)
[2019-07-29] MEDS ORDERED: Adacel (T-DAP) 0.5 ML SYRINGE IM ONE (09:00)
[2019-07-29] MEDS ORDERED: Enoxaparin Sodium 40 MG/0.4 ML SYRINGE SC SCH (09:00)
[2019-07-29] MEDS: Lactated Ringer's 1,000 ML IV SCH ×3 (11:00→19:57)
[2019-07-29] MEDS: Magnesium Sulfate 20 gm/500 ml 20 GM/500 ML BAG IVPB SCH (13:00)
--- NOTE | 2019-07-29 13:47 | PDOC.OBMPN ---
R OB LDICU PN: Subj - Interval History Hospital Day: 4 ((POD#1)) Indentification: 33 y/o ->0312 who delivered via rLTCS on 07/28 @ 33.0 WGA Interval History: Abd pain controlled, minimal lochia, H/A improved, no vision changes or SOB R OB LDICU PN: Obj - Maternal Vital signs: BP: 132/62 HR: 92 RR: 18 - Urine output I&O: 07/28/19 07/29/19 07/30/19 06:59 06:59 06:59 Output Total 1860 Balance -1860 [facility] OB LDICU PN: Exam - Physical Exam General: NAD, awake, alert and oriented HEENT: normocephalic and atraumatic, EOMI, no scleral icterus, grossly normal vision, grossly normal hearing Neck: FROM Heart: RRR, normal S1/S2, no murmurs/rubs/gallops, pulses present, no edema General: CTAB, no respiratory distress, good air movement, no rales/rhonchi, no wheezing Abdomen: soft, non-tender, bowel sound present Musculoskeletal: pulses present, FROM in all four extremities Neurological: cranial nerves II through XII intact, sensation to pain,touch and proprioception grossly normal, DTR +2 Skin: no rash, capillary refill <2 seconds : bandage intact, incision healing well, no drainage Psychiatric: intact recent and remote memory, good judgement and insight, normal mood and affect [facility] OB LDICU PN: Data - Labs Lab results: Laboratory Results - last 24 hr 07/28/19 07/28/19 07/28/19 15:22 15:24 17:58 WBC RBC Hgb Hct MCV MCH MCHC RDW Plt Count MPV Neutrophils % Lymphocytes % Monocytes % Eosinophils % Basophils % Neutrophils # Lymphocytes # Monocytes # Eosinophils # Basophils # PT INR APTT Fibrinogen Fibrin Degrad Products Fibrin Degrad Prod, Qt D-Dimer Bicarbonate Actual 24.8 ABG Base Excess -4.4 L VBG HCO3 VBG Base Excess Cord ABG pH 7.205 L Cord ABG PCO2 (Shamir) 64.1 H* Cord VBG pH Cord VBG pCO2 Sodium Potassium Chloride Carbon Dioxide Anion Gap BUN Creatinine Estimated GFR (MDRD) Glucose POC Glucose 123 H Calcium Magnesium Total Bilirubin AST ALT Alkaline Phosphatase Serum Total Protein Albumin Globulin Albumin/Globulin Ratio Syphilis IgG/IgM Ab Hep Bs Antigen Blood Type A POSITIVE Antibody Screen NEGATIVE Crossmatch See Detail Crossmatch Prewarmed See Detail 07/28/19 07/28/19 07/28/19 17:58 20:13 20:13 WBC 8.0 RBC 3.02 L Hgb 9.1 L Hct 27.0 L MCV 89.5 MCH 30.3 MCHC 33.8 RDW 11.7 Plt Count 199 MPV 7.7 Neutrophils % Lymphocytes % Monocytes % Eosinophils % Basophils % Neutrophils # Lymphocytes # Monocytes # Eosinophils # Basophils # PT INR APTT Fibrinogen Fibrin Degrad Products Fibrin Degrad Prod, Qt D-Dimer Bicarbonate Actual ABG Base Excess VBG HCO3 24 VBG Base Excess -1.9 Cord ABG pH Cord ABG PCO2 (Shamir) Cord VBG pH 7.34 Cord VBG pCO2 46.6 Sodium Potassium Chloride Carbon Dioxide Anion Gap BUN Creatinine Estimated GFR (MDRD) Glucose POC Glucose Calcium Magnesium Total Bilirubin AST ALT Alkaline Phosphatase Serum Total Protein Albumin Globulin Albumin/Globulin Ratio Syphilis IgG/IgM Ab Hep Bs Antigen Non-Reactive Blood Type Antibody Screen Crossmatch Crossmatch Prewarmed 07/28/19 07/28/19 07/28/19 20:13 20:13 20:13 WBC RBC Hgb Hct MCV MCH MCHC RDW Plt Count 199 MPV Neutrophils % Lymphocytes % Monocytes % Eosinophils % Basophils % Neutrophils # Lymphocytes # Monocytes # Eosinophils # Basophils # PT 13.0 INR 1.0 APTT 30.1 Fibrinogen 653 H Fibrin Degrad Products ABNORMAL H Fibrin Degrad Prod, Qt >=5 & <20 H D-Dimer 3.77 H Bicarbonate Actual ABG Base Excess VBG HCO3 VBG Base Excess Cord ABG pH Cord ABG PCO2 (Shamir) Cord VBG pH Cord VBG pCO2 Sodium Potassium Chloride Carbon Dioxide Anion Gap BUN Creatinine Estimated GFR (MDRD) Glucose POC Glucose Calcium Magnesium 1.5 L Total Bilirubin AST ALT Alkaline Phosphatase Serum Total Protein Albumin Globulin Albumin/Globulin Ratio Syphilis IgG/IgM Ab Nonreactive Hep Bs Antigen Blood Type Antibody Screen Crossmatch Crossmatch Prewarmed 07/28/19 07/28/19 07/29/19 20:40 23:26 01:26 WBC RBC Hgb Hct MCV MCH MCHC RDW Plt Count MPV Neutrophils % Lymphocytes % Monocytes % Eosinophils % Basophils % Neutrophils # Lymphocytes # Monocytes # Eosinophils # Basophils # PT INR APTT Fibrinogen Fibrin Degrad Products Fibrin Degrad Prod, Qt D-Dimer Bicarbonate Actual ABG Base Excess VBG HCO3 VBG Base Excess Cord ABG pH Cord ABG PCO2 (Shamir) Cord VBG pH Cord VBG pCO2 Sodium Potassium Chloride Carbon Dioxide Anion Gap BUN Creatinine Estimated GFR (MDRD) Glucose POC Glucose 141 H 119 H Calcium Magnesium 3.5 H Total Bilirubin AST ALT Alkaline Phosphatase Serum Total Protein Albumin Globulin Albumin/Globulin Ratio Syphilis IgG/IgM Ab Hep Bs Antigen Blood Type Antibody Screen Crossmatch Crossmatch Prewarmed 07/29/19 07/29/19 07/29/19 05:25 05:25 05:25 WBC 19.0 H RBC 3.10 L Hgb 9.3 L Hct 27.9 L MCV 90.1 MCH 29.8 MCHC 33.1 RDW 11.9 Plt Count 238 MPV 7.7 Neutrophils % 83.3 H Lymphocytes % 9.7 L Monocytes % 6.7 Eosinophils % 0.2 Basophils % 0.1 Neutrophils # 15.8 H Lymphocytes # 1.8 Monocytes # 1.3 H Eosinophils # 0.0 Basophils # 0.0 PT INR APTT Fibrinogen Fibrin Degrad Products Fibrin Degrad Prod, Qt D-Dimer Bicarbonate Actual ABG Base Excess VBG HCO3 VBG Base Excess Cord ABG pH Cord ABG PCO2 (Shamir) Cord VBG pH Cord VBG pCO2 Sodium 134 L Potassium 4.9 Chloride 104 Carbon Dioxide 22 Anion Gap 13 BUN 16 Creatinine 1.32 H Estimated GFR (MDRD) 56 Glucose 113 H POC Glucose Calcium 8.6 Magnesium 4.3 H Total Bilirubin 0.2 AST 19 ALT 10 Alkaline Phosphatase 61 Serum Total Protein 6.4 Albumin 2.7 L Globulin 3.7 H Albumin/Globulin Ratio 0.7 L Syphilis IgG/IgM Ab Hep Bs Antigen Blood Type Antibody Screen Crossmatch Crossmatch Prewarmed 07/29/19 07/29/19 07/29/19 06:17 10:37 11:00 WBC RBC Hgb Hct MCV MCH MCHC RDW Plt Count MPV Neutrophils % Lymphocytes % Monocytes % Eosinophils % Basophils % Neutrophils # Lymphocytes # Monocytes # Eosinophils # Basophils # PT INR APTT Fibrinogen Fibrin Degrad Products Fibrin Degrad Prod, Qt D-Dimer Bicarbonate Actual ABG Base Excess VBG HCO3 VBG Base Excess Cord ABG pH Cord ABG PCO2 (Shamir) Cord VBG pH Cord VBG pCO2 Sodium Potassium Chloride Carbon Dioxide Anion Gap BUN Creatinine Estimated GFR (MDRD) Glucose POC Glucose 118 H 110 Calcium Magnesium 4.8 H Total Bilirubin AST ALT Alkaline Phosphatase Serum Total Protein Albumin Globulin Albumin/Globulin Ratio Syphilis IgG/IgM Ab Hep Bs Antigen Blood Type Antibody Screen Crossmatch Crossmatch Prewarmed [facility] OB LDICU PN:A/P - Problem List (1) 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 Current Visit: Yes Status: Acute Code(s): O24.319 - UNSP PRE-EXISTING DIABETES IN , UNSP TRIMESTER; E11.21 - TYPE 2 DIABETES MELLITUS WITH DIABETIC NEPHROPATHY (2) CKD (chronic kidney disease), stage III Current Visit: Yes Status: Acute Code(s): N18.3 - CHRONIC KIDNEY DISEASE, STAGE 3 (MODERATE) (3) Proteinuria affecting in third trimester Current Visit: Yes Status: Acute Code(s): O12.13 - GESTATIONAL PROTEINURIA, THIRD TRIMESTER (4) Headache Current Visit: Yes Status: Acute Code(s): R51 - HEADACHE Qualifiers: Headache type: new daily persistent Qualified Code(s): G44.52 - New daily persistent headache (NDPH) (5) Anemia Current Visit: Yes Status: Chronic Code(s): D64.9 - ANEMIA, UNSPECIFIED Disposition: Delivery Pt s/p delivery for maternal indication - superimposed severe pre-e on chronic HTN -PNV -[place] prn pain -Encourage breast feeding -Will need to further discuss contraception as pt at very high risk of morbidity and mortality for any future pregnancies S/P section Pt POD#1 -[place] prn pain -[place] wound vac in place, continue to monitor output Pre-eclampsia superimposed on cHTN Pt on magnesium for 24 hours post-op -Continue mag at 2/hr -Mag levels q6h: 1.5 -> 3.5 -> 4.3 -> 4.8 -Mag checks q4h -LR @ 100 -Monitor BP's closely, labetalol 20mg PRN ordered. Pt has required this once last night. BP's have been mostly 130s-150s/70s-80s, 2 more severe range pressures since last check -Monitor UOP closely, avg 275ml hr since last check CKD III Consulted nephrology, appreciate recs -Avoid nephrotoxic agents, including all NSAIDS Modified White Class F DM Decreased lantus to 22U BID for once pt is eating, currently on clears -SSI -Glucose checks q4h until off mag, then will change to ACHS once eating cc diet Proteinuria affecting in the 3rd Trimester Pt proteinuria trended up from 2g->3.8g->14g in 24 hour urine sample -She has associated lower extremity and abdominal edema -Consulted nephrology, appreciate recs -Lovenox for VTE ppx as higher risk of clotting with significant proteinuria Discussion: Date/Time: 07/29/19 [id number] This H&P was discussed with Dr. Emery and Dr. Fry who agree with the above documentation and plan.
--- NOTE | 2019-07-29 16:23 | PDOC.OBMPN ---
R OB LDICU PN: Subj - Interval History Hospital Day: 4 (POD#1) Indentification: 33 y/o ->0312 who delivered via rLTCS on 07/28 @ 33.0 WGA Interval History: Abd pain controlled, H/A stable, no vision changes or SOB R OB LDICU PN: Obj - Maternal Vital signs: BP: 129/66 HR: 98 - Urine output I&O: 07/28/19 07/29/19 07/30/19 06:59 06:59 06:59 Output Total 1860 Balance -1860 [facility] OB LDICU PN: Exam - Physical Exam General: NAD, awake, alert and oriented HEENT: normocephalic and atraumatic, EOMI, MMM, grossly normal vision, grossly normal hearing Neck: FROM Heart: RRR, normal S1/S2, no murmurs/rubs/gallops, pulses present, no edema General: CTAB, no respiratory distress, good air movement, no rales/rhonchi, no wheezing Abdomen: soft Deviation from normal: Post-operative tenderness Musculoskeletal: pulses present, FROM in all four extremities Neurological: cranial nerves II through XII intact, sensation to pain,touch and proprioception grossly normal, DTR +2 Skin: no rash, capillary refill <2 seconds : bandage intact, incision healing well, appropriately tender Lymphatic: no unusual bruising or bleeding, no purpura Psychiatric: intact recent and remote memory, good judgement and insight, normal mood and affect [facility] OB LDICU PN: Data - Labs Lab results: Laboratory Results - last 24 hr 07/28/19 07/28/19 07/28/19 15:24 17:58 17:58 WBC RBC Hgb Hct MCV MCH MCHC RDW Plt Count MPV Neutrophils % Lymphocytes % Monocytes % Eosinophils % Basophils % Neutrophils # Lymphocytes # Monocytes # Eosinophils # Basophils # PT INR APTT Fibrinogen Fibrin Degrad Products Fibrin Degrad Prod, Qt D-Dimer Bicarbonate Actual 24.8 ABG Base Excess -4.4 L VBG HCO3 24 VBG Base Excess -1.9 Cord ABG pH 7.205 L Cord ABG PCO2 (Shamir) 64.1 H* Cord VBG pH 7.34 Cord VBG pCO2 46.6 Sodium Potassium Chloride Carbon Dioxide Anion Gap BUN Creatinine Estimated GFR (MDRD) Glucose POC Glucose Calcium Magnesium Total Bilirubin AST ALT Alkaline Phosphatase Serum Total Protein Albumin Globulin Albumin/Globulin Ratio Syphilis IgG/IgM Ab Hep Bs Antigen Blood Type A POSITIVE Antibody Screen NEGATIVE Crossmatch See Detail Crossmatch Prewarmed See Detail 07/28/19 07/28/19 07/28/19 20:13 20:13 20:13 WBC 8.0 RBC 3.02 L Hgb 9.1 L Hct 27.0 L MCV 89.5 MCH 30.3 MCHC 33.8 RDW 11.7 Plt Count 199 MPV 7.7 Neutrophils % Lymphocytes % Monocytes % Eosinophils % Basophils % Neutrophils # Lymphocytes # Monocytes # Eosinophils # Basophils # PT INR APTT Fibrinogen Fibrin Degrad Products Fibrin Degrad Prod, Qt D-Dimer Bicarbonate Actual ABG Base Excess VBG HCO3 VBG Base Excess Cord ABG pH Cord ABG PCO2 (Shamir) Cord VBG pH Cord VBG pCO2 Sodium Potassium Chloride Carbon Dioxide Anion Gap BUN Creatinine Estimated GFR (MDRD) Glucose POC Glucose Calcium Magnesium Total Bilirubin AST ALT Alkaline Phosphatase Serum Total Protein Albumin Globulin Albumin/Globulin Ratio Syphilis IgG/IgM Ab Nonreactive Hep Bs Antigen Non-Reactive Blood Type Antibody Screen Crossmatch Crossmatch Prewarmed 07/28/19 07/28/19 07/28/19 20:13 20:13 20:40 WBC RBC Hgb Hct MCV MCH MCHC RDW Plt Count 199 MPV Neutrophils % Lymphocytes % Monocytes % Eosinophils % Basophils % Neutrophils # Lymphocytes # Monocytes # Eosinophils # Basophils # PT 13.0 INR 1.0 APTT 30.1 Fibrinogen 653 H Fibrin Degrad Products ABNORMAL H Fibrin Degrad Prod, Qt >=5 & <20 H D-Dimer 3.77 H Bicarbonate Actual ABG Base Excess VBG HCO3 VBG Base Excess Cord ABG pH Cord ABG PCO2 (Shamir) Cord VBG pH Cord VBG pCO2 Sodium Potassium Chloride Carbon Dioxide Anion Gap BUN Creatinine Estimated GFR (MDRD) Glucose POC Glucose 141 H Calcium Magnesium 1.5 L Total Bilirubin AST ALT Alkaline Phosphatase Serum Total Protein Albumin Globulin Albumin/Globulin Ratio Syphilis IgG/IgM Ab Hep Bs Antigen Blood Type Antibody Screen Crossmatch Crossmatch Prewarmed 07/28/19 07/29/19 07/29/19 23:26 01:26 05:25 WBC RBC Hgb Hct MCV MCH MCHC RDW Plt Count MPV Neutrophils % Lymphocytes % Monocytes % Eosinophils % Basophils % Neutrophils # Lymphocytes # Monocytes # Eosinophils # Basophils # PT INR APTT Fibrinogen Fibrin Degrad Products Fibrin Degrad Prod, Qt D-Dimer Bicarbonate Actual ABG Base Excess VBG HCO3 VBG Base Excess Cord ABG pH Cord ABG PCO2 (Shamir) Cord VBG pH Cord VBG pCO2 Sodium Potassium Chloride Carbon Dioxide Anion Gap BUN Creatinine Estimated GFR (MDRD) Glucose POC Glucose 119 H Calcium Magnesium 3.5 H 4.3 H Total Bilirubin AST ALT Alkaline Phosphatase Serum Total Protein Albumin Globulin Albumin/Globulin Ratio Syphilis IgG/IgM Ab Hep Bs Antigen Blood Type Antibody Screen Crossmatch Crossmatch Prewarmed 07/29/19 07/29/19 07/29/19 05:25 05:25 06:17 WBC 19.0 H RBC 3.10 L Hgb 9.3 L Hct 27.9 L MCV 90.1 MCH 29.8 MCHC 33.1 RDW 11.9 Plt Count 238 MPV 7.7 Neutrophils % 83.3 H Lymphocytes % 9.7 L Monocytes % 6.7 Eosinophils % 0.2 Basophils % 0.1 Neutrophils # 15.8 H Lymphocytes # 1.8 Monocytes # 1.3 H Eosinophils # 0.0 Basophils # 0.0 PT INR APTT Fibrinogen Fibrin Degrad Products Fibrin Degrad Prod, Qt D-Dimer Bicarbonate Actual ABG Base Excess VBG HCO3 VBG Base Excess Cord ABG pH Cord ABG PCO2 (Shamir) Cord VBG pH Cord VBG pCO2 Sodium 134 L Potassium 4.9 Chloride 104 Carbon Dioxide 22 Anion Gap 13 BUN 16 Creatinine 1.32 H Estimated GFR (MDRD) 56 Glucose 113 H POC Glucose 118 H Calcium 8.6 Magnesium Total Bilirubin 0.2 AST 19 ALT 10 Alkaline Phosphatase 61 Serum Total Protein 6.4 Albumin 2.7 L Globulin 3.7 H Albumin/Globulin Ratio 0.7 L Syphilis IgG/IgM Ab Hep Bs Antigen Blood Type Antibody Screen Crossmatch Crossmatch Prewarmed 07/29/19 07/29/19 07/29/19 10:37 11:00 15:17 WBC RBC Hgb Hct MCV MCH MCHC RDW Plt Count MPV Neutrophils % Lymphocytes % Monocytes % Eosinophils % Basophils % Neutrophils # Lymphocytes # Monocytes # Eosinophils # Basophils # PT INR APTT Fibrinogen Fibrin Degrad Products Fibrin Degrad Prod, Qt D-Dimer Bicarbonate Actual ABG Base Excess VBG HCO3 VBG Base Excess Cord ABG pH Cord ABG PCO2 (Shamir) Cord VBG pH Cord VBG pCO2 Sodium Potassium Chloride Carbon Dioxide Anion Gap BUN Creatinine Estimated GFR (MDRD) Glucose POC Glucose 110 170 H Calcium Magnesium 4.8 H Total Bilirubin AST ALT Alkaline Phosphatase Serum Total Protein Albumin Globulin Albumin/Globulin Ratio Syphilis IgG/IgM Ab Hep Bs Antigen Blood Type Antibody Screen Crossmatch Crossmatch Prewarmed [facility] OB LDICU PN:A/P - Problem List (1) 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 Current Visit: Yes Status: Acute Code(s): O24.319 - UNSP PRE-EXISTING DIABETES IN , UNSP TRIMESTER; E11.21 - TYPE 2 DIABETES MELLITUS WITH DIABETIC NEPHROPATHY (2) CKD (chronic kidney disease), stage III Current Visit: Yes Status: Acute Code(s): N18.3 - CHRONIC KIDNEY DISEASE, STAGE 3 (MODERATE) (3) Proteinuria affecting in third trimester Current Visit: Yes Status: Acute Code(s): O12.13 - GESTATIONAL PROTEINURIA, THIRD TRIMESTER (4) Headache Current Visit: Yes Status: Acute Code(s): R51 - HEADACHE Qualifiers: Headache type: new daily persistent Qualified Code(s): G44.52 - New daily persistent headache (NDPH) (5) Anemia Current Visit: Yes Status: Chronic Code(s): D64.9 - ANEMIA, UNSPECIFIED Disposition: Delivery Pt s/p delivery for maternal indication - superimposed severe pre-e on chronic HTN -PNV -[place] prn pain -Encourage breast feeding -Will need to further discuss contraception as pt at very high risk of morbidity and mortality for any future pregnancies S/P section Pt POD#1 -[place] prn pain -[place] wound vac in place, continue to monitor output Pre-eclampsia superimposed on cHTN Pt on magnesium for 24 hours post-op, <3 hrs remaining -Continue mag at 2/hr -Mag levels q6h: 1.5 -> 3.5 -> 4.3 -> 4.8 -Mag checks q4h -LR @ 100 -Monitor BP's closely, labetalol 20mg PRN ordered. Pt has required this once last night. BP's have been mostly 130s-150s/70s-80s, 2 more severe range pressures since last check -Monitor UOP closely, appropriate output currently CKD III Consulted nephrology, appreciate recs -Avoid nephrotoxic agents, including all NSAIDS Modified White Class F DM Decreased lantus to 22U BID for once pt is eating, currently on clears -SSI -Glucose checks q4h until off mag, then will change to ACHS once eating cc diet Proteinuria affecting in the 3rd Trimester Pt proteinuria trended up from 2g->3.8g->14g in 24 hour urine sample -She has associated lower extremity and abdominal edema -Consulted nephrology, appreciate recs -Lovenox for VTE ppx as higher risk of clotting with significant proteinuria Discussion: Date/Time: 07/29/19 3861 This H&P was discussed with Dr. Emery and Dr. Fry who agree with the above documentation and plan.
[2019-07-29] MEDS: HYDROcodone/Acetaminophen 5/325 mg Tablet PO PRN (18:14)
[2019-07-29] MEDS: Ferrous Sulfate 325 MG TAB PO SCH (18:26)
[2019-07-29] MEDS: Docusate Calcium (SURFAK) 240 MG CAP PO SCH (18:26)
[2019-07-29] MEDS: Insulin Glargine 22 UNITS in Pre-Filled Syringe SC SCH ×3 (18:27→21:32)
[2019-07-29] MEDS: Prenatal Vitamin 1 TAB PO SCH (18:28)
--- NOTE | 2019-07-29 19:55 | PDOC.OBMPN ---
[facility] OB LDICU PN: Subj - Interval History Hospital Day: 4 (POD 1 ) Chief Complaint: Pre-ecclampsia with severe features Indentification: delivered via rLTCS @ 1758 on 07/28 Interval History: Doing well. Complains of consistent headache and incisional pain. [facility] OB LDICU PN: Obj - Maternal Vital signs: BP: Most 130s/60s. Highest since last check 140/68 @1523 - Urine output I&O: Urine output has been 200-300/hour 07/28/19 07/29/19 07/30/19 06:59 06:59 06:59 Output Total 1860 Balance -1860 [facility] OB LDICU PN: Exam - Physical Exam General: NAD HEENT: normocephalic and atraumatic, PERRLA, EOMI, grossly normal vision, grossly normal hearing Neck: supple Heart: RRR, normal S1/S2, no murmurs/rubs/gallops, pulses present General: CTAB, no respiratory distress, good air movement Abdomen: soft Neurological: sensation to pain,touch and proprioception grossly normal, DTR +2 Skin: no rash, good tugor : bandage intact, no drainage, appropriately tender Lymphatic: no unusual bruising or bleeding Psychiatric: intact recent and remote memory, good judgement and insight [facility] OB LDICU PN: Data - Labs Lab results: Laboratory Results - last 24 hr 07/28/19 07/28/19 07/28/19 20:13 20:13 20:13 WBC 8.0 RBC 3.02 L Hgb 9.1 L Hct 27.0 L MCV 89.5 MCH 30.3 MCHC 33.8 RDW 11.7 Plt Count 199 MPV 7.7 Neutrophils % Lymphocytes % Monocytes % Eosinophils % Basophils % Neutrophils # Lymphocytes # Monocytes # Eosinophils # Basophils # PT INR APTT Fibrinogen Fibrin Degrad Products Fibrin Degrad Prod, Qt D-Dimer Sodium Potassium Chloride Carbon Dioxide Anion Gap BUN Creatinine Estimated GFR (MDRD) Glucose POC Glucose Calcium Magnesium Total Bilirubin AST ALT Alkaline Phosphatase Serum Total Protein Albumin Globulin Albumin/Globulin Ratio Syphilis IgG/IgM Ab Nonreactive Hep Bs Antigen Non-Reactive 07/28/19 07/28/19 07/28/19 20:13 20:13 20:40 WBC RBC Hgb Hct MCV MCH MCHC RDW Plt Count 199 MPV Neutrophils % Lymphocytes % Monocytes % Eosinophils % Basophils % Neutrophils # Lymphocytes # Monocytes # Eosinophils # Basophils # PT 13.0 INR 1.0 APTT 30.1 Fibrinogen 653 H Fibrin Degrad Products ABNORMAL H Fibrin Degrad Prod, Qt >=5 & <20 H D-Dimer 3.77 H Sodium Potassium Chloride Carbon Dioxide Anion Gap BUN Creatinine Estimated GFR (MDRD) Glucose POC Glucose 141 H Calcium Magnesium 1.5 L Total Bilirubin AST ALT Alkaline Phosphatase Serum Total Protein Albumin Globulin Albumin/Globulin Ratio Syphilis IgG/IgM Ab Hep Bs Antigen 07/28/19 07/29/19 07/29/19 23:26 01:26 05:25 WBC RBC Hgb Hct MCV MCH MCHC RDW Plt Count MPV Neutrophils % Lymphocytes % Monocytes % Eosinophils % Basophils % Neutrophils # Lymphocytes # Monocytes # Eosinophils # Basophils # PT INR APTT Fibrinogen Fibrin Degrad Products Fibrin Degrad Prod, Qt D-Dimer Sodium Potassium Chloride Carbon Dioxide Anion Gap BUN Creatinine Estimated GFR (MDRD) Glucose POC Glucose 119 H Calcium Magnesium 3.5 H 4.3 H Total Bilirubin AST ALT Alkaline Phosphatase Serum Total Protein Albumin Globulin Albumin/Globulin Ratio Syphilis IgG/IgM Ab Hep Bs Antigen 07/29/19 07/29/19 07/29/19 05:25 05:25 06:17 WBC 19.0 H RBC 3.10 L Hgb 9.3 L Hct 27.9 L MCV 90.1 MCH 29.8 MCHC 33.1 RDW 11.9 Plt Count 238 MPV 7.7 Neutrophils % 83.3 H Lymphocytes % 9.7 L Monocytes % 6.7 Eosinophils % 0.2 Basophils % 0.1 Neutrophils # 15.8 H Lymphocytes # 1.8 Monocytes # 1.3 H Eosinophils # 0.0 Basophils # 0.0 PT INR APTT Fibrinogen Fibrin Degrad Products Fibrin Degrad Prod, Qt D-Dimer Sodium 134 L Potassium 4.9 Chloride 104 Carbon Dioxide 22 Anion Gap 13 BUN 16 Creatinine 1.32 H Estimated GFR (MDRD) 56 Glucose 113 H POC Glucose 118 H Calcium 8.6 Magnesium Total Bilirubin 0.2 AST 19 ALT 10 Alkaline Phosphatase 61 Serum Total Protein 6.4 Albumin 2.7 L Globulin 3.7 H Albumin/Globulin Ratio 0.7 L Syphilis IgG/IgM Ab Hep Bs Antigen 07/29/19 07/29/19 07/29/19 10:37 11:00 15:17 WBC RBC Hgb Hct MCV MCH MCHC RDW Plt Count MPV Neutrophils % Lymphocytes % Monocytes % Eosinophils % Basophils % Neutrophils # Lymphocytes # Monocytes # Eosinophils # Basophils # PT INR APTT Fibrinogen Fibrin Degrad Products Fibrin Degrad Prod, Qt D-Dimer Sodium Potassium Chloride Carbon Dioxide Anion Gap BUN Creatinine Estimated GFR (MDRD) Glucose POC Glucose 110 170 H Calcium Magnesium 4.8 H Total Bilirubin AST ALT Alkaline Phosphatase Serum Total Protein Albumin Globulin Albumin/Globulin Ratio Syphilis IgG/IgM Ab Hep Bs Antigen 07/29/19 07/29/19 17:37 18:36 WBC RBC Hgb Hct MCV MCH MCHC RDW Plt Count MPV Neutrophils % Lymphocytes % Monocytes % Eosinophils % Basophils % Neutrophils # Lymphocytes # Monocytes # Eosinophils # Basophils # PT INR APTT Fibrinogen Fibrin Degrad Products Fibrin Degrad Prod, Qt D-Dimer Sodium Potassium Chloride Carbon Dioxide Anion Gap BUN Creatinine Estimated GFR (MDRD) Glucose POC Glucose 132 H Calcium Magnesium 5.0 H Total Bilirubin AST ALT Alkaline Phosphatase Serum Total Protein Albumin Globulin Albumin/Globulin Ratio Syphilis IgG/IgM Ab Hep Bs Antigen [facility] OB LDICU PN:A/P Discussion: Date/Time: 07/29/191954 Delivery Pt s/p delivery superimposed severe pre-e on chronic HTN -PNV -[place] prn pain -Encourage breast feeding -Will need to further discuss contraception as pt at very high risk of morbidity and mortality for any future pregnancies S/P section Pt POD#1 -[place] prn pain -[place] wound vac in place, continue to monitor output Pre-eclampsia superimposed on cHTN Pt on magnesium for 24 hours post-op, will discontinue magnesium at 20:30 07/29 and move to . -Continue mag at 2/hr -Mag levels q6h: 1.5 -> 3.5 -> 4.3 -> 4.8 -> 5.0 -Mag checks q4h -LR @ 100 -Monitor BP's closely, labetalol 20mg PRN ordered. Pt has required this once last night. BP's have been mostly 130s-150s/60s -Monitor UOP closely, appropriate output currently (200-300/hour) CKD III Consulted nephrology, appreciate recs -Avoid nephrotoxic agents, including all NSAIDS Modified White Class F DM Decreased lantus to 22U BID for once pt is eating, currently on clears -SSI -Glucose checks q4h until off mag, then will change to ACHS once eating cc diet Proteinuria affecting in the 3rd Trimester Pt proteinuria trended up from 2g->3.8g->14g in 24 hour urine sample -She has associated lower extremity and abdominal edema -Consulted nephrology, appreciate recs -Lovenox for VTE ppx as higher risk of clotting with significant proteinuria This H&P was discussed with Dr. Brady and Dr. Galan who agree with the above documentation and plan.
[2019-07-29] MEDS: Enoxaparin Sodium 40 MG/0.4 ML SYRINGE SC SCH (21:25)
[2019-07-29] MEDS: HumaLOG 300 UNITS/3 ML VIAL SC PRN (21:53)
[2019-07-29] MEDS ORDERED: Morphine 4 MG/ML VIAL SLOW IVP SCH (23:30)
[2019-07-30] MEDS: HumaLOG 300 UNITS/3 ML VIAL SC PRN ×2 (00:52→15:29)
[2019-07-30] MEDS: Docusate Calcium (SURFAK) 240 MG CAP PO SCH ×3 (05:24→21:17)
[2019-07-30] MEDS: HYDROcodone/Acetaminophen 5/325 mg Tablet PO PRN ×2 (06:12→16:57)
[2019-07-30] MEDS: HumaLOG 300 UNITS/3 ML VIAL SC SCH ×3 (07:12→17:05)
--- NOTE | 2019-07-30 07:45 | PDOC.OBPPN ---
FMR OB PN: Subj - Interval History Day: 2 33 y/o ->0312 who delivered via rLTCS on 07/28 @ 33.0 WGA indicated for severe pre-eclampsia superimposed on cHTN. Minimal lochia, abd pain improved with norco. Tolerating PO, able to ambulate to the bathroom, but not any further. Endorses flatus. She is pumping for her baby in the NICU and plans to breast feed when she can. Denies H/A, vision changes, SOB, RUQ pain. FMR OB PN: Obj - Maternal Vital signs: BP: 135/78 HR: 100 RR: 18 Tmax: 99.0 Pox: 100% on RA Wt: 137kg - Urine output I&O: 07/29/19 07/30/19 07/31/19 06:59 06:59 06:59 Output Total 1860 30 Balance -1860 -30 FMR OB PN: Exam - Physical Exam General: NAD, awake, alert and oriented HEENT: EOMI, MMM, grossly normal vision, grossly normal hearing Neck: supple, no LAD Heart: RRR, normal S1/S2, no murmurs/rubs/gallops, pulses present, other (1+ pitting edema to BLE) General: CTAB, no respiratory distress, good air movement, no rales/rhonchi, no wheezing Abdomen: soft, fundus(cm) (firm) Musculoskeletal: pulses present Neurological: no clonus, no focal deficit Skin: good tugor, capillary refill <2 seconds : bandage intact (wound vac in place), appropriately tender Psychiatric: intact recent and remote memory, good judgement and insight FMR OB PN: Data - Labs Lab results: Laboratory Results - last 24 hr 07/29/19 07/29/19 07/29/19 10:37 11:00 15:17 POC Glucose 110 170 H Magnesium 4.8 H 07/29/19 07/29/19 07/29/19 17:37 18:36 21:40 POC Glucose 132 H 183 H Magnesium 5.0 H 07/30/19 07/30/19 00:42 05:38 POC Glucose 161 H 135 H Magnesium FMR OB PN: A/P - Problem List (1) delivery Current Visit: Yes Status: Acute Code(s): O60.10X0 - LABOR W DELIVERY, UNSP TRIMESTER, UNSP (2) S/P section Current Visit: Yes Status: Acute Code(s): Z98.891 - HISTORY OF UTERINE SCAR FROM PREVIOUS SURGERY (3) Pre-eclampsia superimposed on chronic hypertension, delivered Current Visit: Yes Status: Acute Code(s): O11.4 - PRE-EXISTING HTN WITH PRE- ECLAMPSIA, COMP CHILDBIRTH; O10.92 - UNSP PRE-EXISTING HYPERTENSION COMPLICATING CHILDBIRTH (4) CKD (chronic kidney disease), stage III Current Visit: Yes Status: Acute Code(s): N18.3 - CHRONIC KIDNEY DISEASE, STAGE 3 (MODERATE) (5) 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 Current Visit: Yes Status: Acute Code(s): O24.319 - UNSP PRE-EXISTING DIABETES IN , UNSP TRIMESTER; E11.21 - TYPE 2 DIABETES MELLITUS WITH DIABETIC NEPHROPATHY (6) Proteinuria affecting in third trimester Current Visit: Yes Status: Acute Code(s): O12.13 - GESTATIONAL PROTEINURIA, THIRD TRIMESTER (7) Anemia Current Visit: Yes Status: Chronic Code(s): D64.9 - ANEMIA, UNSPECIFIED (8) Obesity Current Visit: Yes Status: Acute Code(s): E66.9 - OBESITY, UNSPECIFIED Disposition: Delivery Pt s/p delivery superimposed severe pre-e on chronic HTN -PNV -[place] prn pain -Encourage breast feeding -Will need to further discuss contraception as pt at very high risk of morbidity and mortality for any future pregnancies S/P section Pt POD#2 -[place] prn pain -Sherlyn wound vac in place, continue to monitor output Pre-eclampsia superimposed on cHTN Pt on magnesium for 24 hours post-op, was stopped last night. -Monitor BP's closely, labetalol 20mg PRN ordered. -BPs have been mostly 130s-140s, but did have 173/87 this AM. The nurse reports it was the wrong size cuff and the repeat was in the 130s. CKD III Consulted nephrology, appreciate recs -Avoid nephrotoxic agents, including all NSAIDS Modified White Class F DM Decreased lantus to 22U BID -SSI -Glucose checks ACHS -CC diet Proteinuria affecting in the 3rd Trimester Pt proteinuria trended up from 2g->3.8g->14g in 24 hour urine sample -She has associated lower extremity and abdominal edema -Consulted nephrology, appreciate recs -Lovenox for VTE ppx as higher risk of clotting with significant proteinuria Discussion: Date/Time: 07/30/19742 This H&P was discussed with Dr. Fry who agrees with the above documentation and plan. Signature: Tabatha Bernard MD, PGY-3 Addendum - Attending - Attending Attestation Date/Time: 07/30/192125 I personally evaluated the patient and discussed the management with Dr. Bernard I agree with the History, Examination, Assessment and Plan documented above with any addition or exceptions noted below - Patient up ambulating short distances. Afebrile VSS. A/P: 1) POD#2 s/p repeat C/S - continue current care. 2) DM - basal and short acting insulin decreased; Continue to monitro accuchecks. 3) CKD- stable; 4) HTN- BP overall stable; start meds in next 1-2 days if elevated.
[2019-07-30] MEDS: Ferrous Sulfate 325 MG TAB PO SCH (09:17)
[2019-07-30] MEDS: Prenatal Vitamin 1 TAB PO SCH (09:17)
[2019-07-30] MEDS: Insulin Glargine 22 UNITS in Pre-Filled Syringe SC SCH ×2 (09:20→21:16)
--- NOTE | 2019-07-30 11:28 | CON ---
DATE OF CONSULTATION: REASON FOR CONSULTATION: Nephrotic-range proteinuria. HISTORY OF PRESENT ILLNESS: A 33-year-old female with a baseline creatinine of 1.3, recently and had a delivery. The patient's proteinuria increased from 3 g to 14 g. The patient denies any nausea, vomiting, leg swelling, or chest pain. PAST MEDICAL HISTORY: Significant for diabetes mellitus, hypertension, anemia, and history of obesity. SOCIAL HISTORY: No alcohol or drug use. FAMILY HISTORY: Negative for ESRD. ALLERGIES: REVIEWED. MEDICATIONS: Home medications list, reviewed. Hospital medications list, reviewed. REVIEW OF SYSTEMS: A 15-point review of systems was performed and was negative except for positives noted above. GENERAL: HEAD: NECK: No swelling or lumps. NOSE: No epistaxis or discharge. EYES: No diplopia or pain. 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 NEUROPSYCHIATIC SYSTEMS: No suicidal ideation. No ideation. SKIN: Denies any rash or ulcer. CONSTITUTIONAL: No fever or chills. PHYSICAL EXAMINATION: GENERAL: The patient is awake and alert. VITAL SIGNS: Afebrile, pulse 75, breathing 16, blood pressure was 138/65. GENERAL APPEARANCE AND MENTAL STATUS: Fair. HEAD/NECK: Normocephalic. Atraumatic. EYES: EOMI. No deformity. EARS: Clear. No ulcers. NOSE: Intact. No lesions. MOUTH: Clear. No discharge. THROAT: Clear. No exudate. LUNGS: Clear. No crackles. CARDIAC: S1, S2. No rub. ABDOMEN: Benign. Bowel sounds positive. GENITALIA/RECTUM: Munoz absent. BACK/EXTREMITIES: Edema 0+. NEUROLOGICAL: Alert and motor intact. SKIN: LYMPHATICS: LABORATORY DATA: Reviewed. ASSESSMENT AND PLAN: 1. Acute kidney injury with chronic kidney disease and nephrotic-range proteinuria in the setting of . We will follow proteinuria closely. The patient is not a candidate for XIMENA. We will consider renal biopsy. 2. Hypertension, stable. 3. Anemia, stable. 4. Proteinuria. See plan above. No indication for dialysis at this time. Job ID: [id number]
[2019-07-30] MEDS ORDERED: Ondansetron ODT 8 MG TAB SL PRN (11:44)
[2019-07-30] MEDS ORDERED: Morphine 4 MG/ML VIAL SLOW IVP PRN (18:16)
[2019-07-30] MEDS: Enoxaparin Sodium 40 MG/0.4 ML SYRINGE SC SCH (21:16)
[2019-07-31 04:57] LABS: ALT (SGPT) 8 U/L (8-55); AST (SGOT) 12 U/L (5-34); Albumin 2.4 g/dL (3.5-5.0); Alkaline Phosphatase 52 U/L (40-110); Anion Gap 10 mmol/L (10-20); BUN (Urea Nitrogen) 19 mg/dL (7.0-18.7); Bilirubin, Total 0.2 mg/dL (0.2-1.2); Calc. Creatinine Clearance 114 mL/min (70-130); Calcium 8.3 mg/dL (7.8-10.44); Carbon Dioxide 27 mmol/L (22-29); Chloride 106 mmol/L (98-107); Estimated GFR-MDRD 47; Globulin 3.2 g/dL (2.4-3.5); Glucose 145 mg/dL (70-105); Potassium 4.7 mmol/L (3.5-5.1); Protein, Total 5.6 g/dL (6.0-8.3); Sodium 138 mmol/L (136-145)
[2019-07-31 05:01] VITALS: TEMP 98.2
[2019-07-31 08:14] VITALS: BP 132/62
--- NOTE | 2019-07-31 08:18 | PDOC.OBPPN ---
FMR OB PN: Subj - Interval History Day: 3 33 y/o ->0312 who delivered via rLTCS on 07/28 @ 33.0 WGA indicated for severe pre-eclampsia superimposed on cHTN. Minimal lochia, abd pain improved with norco. Tolerating PO, able to ambulate in the hallways. Endorses flatus. She is pumping for her baby in the NICU and plans to breast feed when she can. Denies H/A, vision changes, SOB, RUQ pain. FMR OB PN: Obj - Maternal Vital signs: BP: 132/62 HR: 104 RR: 20 Tmax: 98.2 Pox: 97% on RA Wt: 137kg - Urine output I&O: 07/30/19 07/31/19 08/01/19 06:59 06:59 06:59 Intake Total 354 Output Total 100 Balance -100 354 FMR OB PN: Exam - Physical Exam General: NAD, awake, alert and oriented HEENT: MMM, conjunctiva clear, grossly normal vision, grossly normal hearing Neck: supple, no LAD Heart: RRR, normal S1/S2, no murmurs/rubs/gallops, pulses present, other (1+ pitting edema BLE) General: CTAB, no respiratory distress, good air movement, no rales/rhonchi, no wheezing Abdomen: soft, fundus(cm) (firm) Neurological: no clonus, no focal deficit Skin: good tugor, capillary refill <2 seconds : bandage intact (wound vac in place), appropriately tender Lymphatic: no unusual bruising or bleeding, no purpura Psychiatric: intact recent and remote memory, good judgement and insight FMR OB PN: Data - Labs Lab results: Laboratory Results - last 24 hr 07/30/19 07/30/19 07/30/19 13:57 18:43 21:09 Sodium Potassium Chloride Carbon Dioxide Anion Gap BUN Creatinine Estimated GFR (MDRD) Glucose POC Glucose 161 H 133 H 132 H Calcium Total Bilirubin AST ALT Alkaline Phosphatase Serum Total Protein Albumin Globulin Albumin/Globulin Ratio 07/31/19 07/31/19 04:18 06:10 Sodium 138 Potassium 4.7 Chloride 106 Carbon Dioxide 27 Anion Gap 10 BUN 19 H Creatinine 1.54 H Estimated GFR (MDRD) 47 Glucose 145 H POC Glucose 119 H Calcium 8.3 Total Bilirubin 0.2 AST 12 ALT 8 Alkaline Phosphatase 52 Serum Total Protein 5.6 L Albumin 2.4 L Globulin 3.2 Albumin/Globulin Ratio 0.8 L FMR OB PN: A/P - Problem List (1) delivery Current Visit: Yes Status: Acute Code(s): O60.10X0 - LABOR W DELIVERY, UNSP TRIMESTER, UNSP (2) S/P section Current Visit: Yes Status: Acute Code(s): Z98.891 - HISTORY OF UTERINE SCAR FROM PREVIOUS SURGERY (3) Pre-eclampsia superimposed on chronic hypertension, delivered Current Visit: Yes Status: Acute Code(s): O11.4 - PRE-EXISTING HTN WITH PRE- ECLAMPSIA, COMP CHILDBIRTH; O10.92 - UNSP PRE-EXISTING HYPERTENSION COMPLICATING CHILDBIRTH (4) CKD (chronic kidney disease), stage III Current Visit: Yes Status: Acute Code(s): N18.3 - CHRONIC KIDNEY DISEASE, STAGE 3 (MODERATE) (5) 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 Current Visit: Yes Status: Acute Code(s): O24.319 - UNSP PRE-EXISTING DIABETES IN , UNSP TRIMESTER; E11.21 - TYPE 2 DIABETES MELLITUS WITH DIABETIC NEPHROPATHY (6) Proteinuria affecting in third trimester Current Visit: Yes Status: Acute Code(s): O12.13 - GESTATIONAL PROTEINURIA, THIRD TRIMESTER (7) Anemia Current Visit: Yes Status: Chronic Code(s): D64.9 - ANEMIA, UNSPECIFIED (8) Obesity Current Visit: Yes Status: Acute Code(s): E66.9 - OBESITY, UNSPECIFIED Disposition: Delivery Pt s/p delivery superimposed severe pre-e on chronic HTN -PNV -[place] prn pain -Encourage breast feeding -Will need to further discuss contraception as pt at very high risk of morbidity and mortality for any future pregnancies S/P section Pt POD#3 -[place] prn pain -[place] wound vac in place, continue to monitor output. Will remove on POD#7 Pre-eclampsia superimposed on cHTN Pt on magnesium for 24 hours post-op -Monitor BP's closely, no indication to start BP med at this time. -BPs have been mostly 130s-140s systolic CKD III Consulted nephrology, appreciate recs -Avoid nephrotoxic agents, including all NSAIDS Modified White Class F DM Decreased lantus to 22U BID -SSI -Glucose checks ACHS -CC diet Proteinuria affecting in the 3rd Trimester Pt proteinuria trended up from 2g->3.8g->14g in 24 hour urine sample -She has associated lower extremity and abdominal edema -Consulted nephrology, appreciate recs -Lovenox for VTE ppx as higher risk of clotting with significant proteinuria, will continue this for 6 weeks and then beyond pending nephro recs and improvement of proteinuria Discussion: Date/Time: 07/31/19 6418 This H&P was discussed with Dr. Fry who agrees with the above documentation and plan. Signature: Tabatha Bernard MD, PGY-3 Addendum - Attending - Attending Attestation Date/Time: 07/31/19 [id number] I personally evaluated the patient and discussed the management with Dr. Bernard I agree with the History, Examination, Assessment and Plan documented above with any addition or exceptions noted below- Patient feeling better. [place] more. Denies any ARSHAD. Afebrile VSS A/P: 1) POD#3 s/p Repeat c/section - doing well. Plan to d/c home today. 2) HTN- doing well. Will follow-up as outpatient. 3) Type 2 DM- well controlled on current regimen.
[2019-07-31] MEDS: Ferrous Sulfate 325 MG TAB PO SCH (09:12)
[2019-07-31] MEDS: Insulin Glargine 22 UNITS in Pre-Filled Syringe SC SCH (09:12)
[2019-07-31] MEDS: Docusate Calcium (SURFAK) 240 MG CAP PO SCH (09:12)
[2019-07-31] MEDS: Prenatal Vitamin 1 TAB PO SCH (09:12)
[2019-07-31] MEDS: HumaLOG 300 UNITS/3 ML VIAL SC SCH ×3 (09:13→17:24)
--- NOTE | 2019-07-31 10:41 | PRG ---
DATE OF SERVICE: 07/31/2019 SUBJECTIVE: A 33-year-old female, being seen for acute kidney injury. The patient denied any nausea, vomiting, or chest pain. OBJECTIVE: See above. Awake, alert, in no acute distress. VITAL SIGNS: Afebrile, pulse 93, breathing 16, blood pressure 135/60. GENERAL APPEARANCE AND MENTAL STATUS: Fair. HEAD/NECK: Normocephalic. Atraumatic. EYES: EOMI. No deformity. EARS: Clear. No ulcers. NOSE: Intact. No lesions. MOUTH: Clear. No discharge. THROAT: Clear. No exudate. LUNGS: Clear. No crackles. CARDIAC: S1, S2. No rub. ABDOMEN: Benign. Bowel sounds positive. GENITALIA/RECTUM: Munoz absent. BACK/EXTREMITIES: Edema 0+. NEUROLOGICAL: Alert and motor intact. SKIN: LYMPHATICS: LABORATORY DATA: Reviewed. ASSESSMENT AND PLAN: 1. Chronic kidney disease, stage 3, stable. 2. Hypertension, stable. 3. Anemia, stable. 4. Medication based on GFR appropriate. Job ID: [id number]
[2019-08-01 13:57] LABS: ANA Symphony (Qualitative) Negative (Negative); ANA Symphony (Quantitative) 0.1 Ratio (< 0.7 Negative); dsDNA IgG Antibody Less than 0.5 IU/mL (<10 Negative)
== END 2019-07-31 18:47 | disposition home or self-care (01) | DRG 786 ==
LOC: L&D/OP 20:00 → L&D 07-27 00:59 → OBSVTOIN 07-28 12:06 → L&D-LIB 07-28 23:26 → 3SE 07-30 06:26
PROVIDERS: ADMIT Family Medicine; ATTEND Family Medicine
PROC: 10D00Z1 Extraction of Products of Conception, Low, Open Approach (ICD-10-PCS; principal; 2019-07-28)
PROC: 0TN60ZZ Release Right Ureter, Open Approach (ICD-10-PCS; 2019-07-28)
DX: O34.211 Maternal care for low transverse scar from previous cesarean delivery (principal); O24.12 Pre-existing type 2 diabetes mellitus, in childbirth; O72.1 Other immediate postpartum hemorrhage; N17.9 Acute kidney failure, unspecified; Z3A.32 32 weeks gestation of pregnancy; Z37.0 Single live birth; O10.22 Pre-existing hypertensive chronic kidney disease complicating childbirth; I12.9 Hypertensive chronic kidney disease with stage 1 through stage 4 chronic kidney disease, or unspecified chronic kidney disease; N18.3 Chronic kidney disease, stage 3 (moderate); O99.214 Obesity complicating childbirth; E11.22 Type 2 diabetes mellitus with diabetic chronic kidney disease; O99.02 Anemia complicating childbirth; D64.9 Anemia, unspecified; E66.01 Morbid (severe) obesity due to excess calories
CPT/HCPCS: 36415; 36416; 51702; 76819; 80048; 80053; 82570; 82805; 83735; 83880; 84156; 85025; 85027; 85049; 85300; 85362; 85379; 85384; 85610; 85730; 86038; 86225; 86780; 86850; 86900; 86901; 86921; 87340; 88307; 99285; J0690; J0702; J1200; J1650; J1815; J2175; J2270; J2274; J2405; J2590; J3010; J3475